=== PATIENT | female | born 1930 | race Caucasian/White ===

== ENCOUNTER 2018-06-25 15:11 | Inpatient (IN) | payer OTHER ==
[~2018-06-25] VITALS: Ht 162.6 cm; Wt 73.9 kg
[2018-06-25] MEDS ORDERED: ACIDOPHILUS1 EACH PO (15:39)
[2018-06-25] MEDS ORDERED: BACTRIM DS TAB1 EACH PO (15:39)
[2018-06-25] MEDS ORDERED: COUMADIN1 M1 PO (15:40)
[2018-06-25] MEDS ORDERED: SERTRALINE HCL25 MG PO (15:40)
[2018-06-25] MEDS ORDERED: CRESTOR5 M1 PO (15:41)
[2018-06-25] MEDS ORDERED: CARDIZEM CD120 M2 PO (15:41)
[2018-06-25] MEDS ORDERED: TOPROL XL200 M1 PO (15:42)
[2018-06-25] MEDS ORDERED: LASIX20 M1 PO (15:42)
[2018-06-25] MEDS ORDERED: CALCIUM 500 +1 EAC3 PO (15:43)
[2018-06-25] MEDS ORDERED: MIRALAX17 G1 PO (15:43)
[2018-06-25] MEDS ORDERED: VITAMIN B-121000 MC3 PO (15:44)
[2018-06-25] MEDS ORDERED: FOLIC ACID1 M1 PO (15:44)
[2018-06-25] MEDS ORDERED: SODIUM CHLORI1000 MG PO (15:45)
[2018-06-25] MEDS ORDERED: TRAVATAN Z5 ML OD (15:46)
[2018-06-25 16:00] LABS: ABSOLUTE BASOPHIL COUNT 0 /CUMM (0.0-0.2); ABSOLUTE EOSINOPHIL COUNT 0 /CUMM (0.0-0.7); ABSOLUTE GRANULOCYTE CT 6.2 /CUMM (1.4-6.5); ABSOLUTE LYMPH COUNT 2.7 /CUMM (1.2-3.4); ABSOLUTE MONOCYTE COUNT 0.5 /CUMM (0.10-0.60); BASOPHIL % 0.1 % (0.0-2.0); EOSINOPHIL % 0.3 % (0-5); HEMATOCRIT 22.6 % (37-47); MEAN CORPUSCULAR HGB 24.6 PG (27.0-31.0); MEAN CORPUSCULAR HGB CONC 31.5 G/DL (33.0-37.0); MEAN CORPUSCULAR VOLUME 78.2 FL (81.0-99.0); MEAN PLATELET VOLUME 8.6 FL (7.4-10.4); PLATELET COUNT 291 /CUMM (130-400); RBC DISTRIBUTION WIDTH 17.4 % (11.5-14.5); RED BLOOD CELL CT 2.88 /CUMM (4.20-5.40); WHITE BLOOD CELL COUNT 9.4 /CUMM (4.8-10.8)
--- NOTE | 2018-06-25 16:11 | ED GENERAL ADULT ---
See Addendum History of Present Illness General Chief Complaint: General Adult Stated Complaint: BIBA GI BLEED Source: patient, EMS Exam Limitations: dementia, poor historian Allergies Coded Allergies: Penicillins (UNKNOWN 06/25/18) erythromycin base (UNKNOWN 06/25/18) fluoxetine (From PROZAC) (UNKNOWN 06/25/18) Reconcile Medications Calcium Carbonate/Vitamin D3 (Calcium 500 + Vit D 200 Caplet) 500 MG-200 TABLET 1 TAB PO DAILY VITAMIN SUPPORT (Reported) Cyanocobalamin (Vitamin B-12) 1,000 MCG TABLET 1 TAB PO DAILY VITAMIN SUPPORT (Reported) Diltiazem HCl (Cardizem Cd) 120 MG CAP.ER.24H 1 CAP PO DAILY HEART (Reported) Folic Acid 1 MG TABLET 1 TAB PO DAILY VITAMIN SUPPORT (Reported) Furosemide (Lasix) 20 MG TABLET 1 TAB PO DAILY WATER RETENTION (Reported) Lactobacillus Acidophilus (Acidophilus) 1 EACH CAPSULE 1 CAP PO BID GI ( Reported) Metoprolol Succinate (Toprol XL) 200 MG TAB.ER.24H 1 TAB PO DAILY HEART ( Reported) Polyethylene Glycol 3350 (Miralax) 17 GRAM POWD.PACK 1 PAC PO DAILY GI ( Reported) dissolve in water Rosuvastatin Calcium (Crestor) 5 MG TABLET 1 TAB PO DAILY CHOLESTEROL ( Reported) Sertraline HCl 25 MG TABLET 1 TAB PO DAILY DEPRESSION (Reported) Sodium Chloride 1,000 MG TABLET.SONG 2 TAB PO DAILY SUPPLEMENT (Reported) Sulfamethoxazole/Trimethoprim (Bactrim Ds Tablet) 800 MG-160 MG TABLET 1 TAB PO BID ANTIBIOTIC, INFECTION (Reported) Travoprost (Travatan Z) 0.004 % DROPS 1 GTT OD QPM EYE (Reported) Warfarin Sodium (Coumadin) 1 MG TABLET 1 TAB PO 1700 BLOOD THINNER (Reported) Triage Note: PT BIBA FROM ECF WITH C/O NEW ONSET RECTAL BLEEDING AND AMS. EMS REPORTS ABNORMAL PT/INR, ABDORMAL RENAL FUNCTION FROM LABS DRAWN YESTERDAY. PT ON COUMADIN, STOPPED YESTERDAY 2/2 ELEVATED PT/INR. BUN 25.5, CR 2.8. PT ARRIVES LETHARGIC, COOL TO TOUCH, DUSKY EXTREMETIES, PALE. AWAKENS TO MOANING ALOUD R/T ABDOMINAL PAIN. HYPOTENSIVE EN ROUTE, BLOOD GLUCOSE 103. Triage Nurses Notes Reviewed? yes Onset: Abrupt Duration: hour(s): Timing: constant HPI: 88-year-old female with a history of an dementiam, NSTEMI, a-fib (on coumadin) and hypertension brought in by ambulance from an ECF with her mental status and rectal bleeding since this morning. Patient was recently on Coumadin which was stopped yesterday secondary to an elevated INR. Today the ECF noticed bright red blood per rectum in the patient's diaper. Patient has dementia at baseline, but has had an acute worsening in her mental status. On arrival to the emergency department she appears cool and cyanotic, will intermittently moan regarding abdominal pain. Patient response to vigorous stimuli, but is unable to provide any history at this time. (Sera Umanzor) Vital Signs & Intake/Output Vital Signs & Intake/Output Vital Signs Date Time Temp Pulse Resp B/P B/P Pulse O2 O2 Flow FiO2 Mean Ox Delivery Rate 06/25 1836 94.3 104 13 88/54 100 Nasal 2.0L Cannula 06/25 1645 96.3 98 26 1058/00 06/25 1610 96 Non 100% ReBreather 06/25 1520 96.3 110 24 96/49 92 Nasal 2.0L Cannula (Chris Osman) Past History Travel History Traveled to [place] past 21 day No Medical History Any Pertinent Medical History? see below for history Cardiovascular: hypertension, NSTEMI Surgical History Surgical History: non-contributory Family History Hx Contributory? No (Sera Umanzor) Review of Systems Review of Systems Constitutional: Reports: no symptoms. EENTM: Reports: no symptoms. Respiratory: Reports: no symptoms. Cardiovascular: Reports: no symptoms. GI: Reports: see HPI. Genitourinary: Reports: no symptoms. Musculoskeletal: Reports: no symptoms. Skin: Reports: no symptoms. Neurological/Psychological: Reports: see HPI. Hematologic/Endocrine: Reports: no symptoms. Immunologic/Allergic: Reports: no symptoms. All Other Systems: Reviewed and Negative (Sera Umanzor) Physical Exam Physical Exam General Appearance: lethargic, moderate distress Head: atraumatic, normal appearance Eyes: Bilateral: normal appearance. Neck: normal inspection Cardiovascular: irregular rhythm Gastrointestinal: soft, non-tender Rectal: heme positive stool, bright red blood is noted in the patient's diaper as well as digital rectal exam Back: normal inspection Extremities: normal inspection Neurologic/Psych: awake, alert, disoriented 3 Skin: intact, cyanosis, pallor Core Measures ACS in differential dx? No CVA/TIA Diagnosis: No Sepsis Present: No Sepsis Focused Exam Completed? No (Nan ENGLAND,Sera) Progress Differential Diagnoses I considered the following diagnoses in my evaluation of the patient: [Lower GI bleed versus brisk upper GI bleed versus anemia versus ACS] Initial ED EKG: AFIB, mild QRS widening (Nan ENGLAND,Sera) Plan of Care: Orders Procedure Date/time Status Nothing by Mouth 06/26 B Active Patient Data 06/25 2011 Active Admit to inpatient 06/25 2009 Active Code Status 06/25 2009 Active TROPONIN LEVEL 06/25 194 Active PROTHROMBIN TIME 06/25 194 Complete CBC WITHOUT DIFFERENTIAL 06/25 194 Complete BASIC METABOLIC PANEL 06/25 194 Active Hill, Insertion/Removal/Asses 06/25 175 Active CULTURE,URINE 06/25 175 Active BLOOD PRODUCT PICKUP 06/25 1739 Active EKG 06/25 1711 Active Intake & Output 06/25 1707 Active BLOOD PRODUCT PICKUP 06/25 1638 Active FingerStick- Glucose 06/25 1627 Active FRESH FROZEN PLASMA 06/25 1619 Active LEUKOCYTE POOR (PACKED CELLS) 06/25 1552 Active URINALYSIS 06/25 1521 Complete TROPONIN LEVEL 06/25 1521 Complete PARTIAL THROMBOPLASTIN TIME 06/25 1521 Complete PROTHROMBIN TIME 06/25 1521 Complete COMPREHENSIVE METABOLIC PANEL 06/25 1521 Complete CBC WITHOUT DIFFERENTIAL 06/25 1521 Complete EKG 06/25 1521 Active TYPE & SCREEN (NOT X-MATCH) 06/25 1521 Active Current Medications Sig/Osmany Start time Last Medication Dose Stop Time Status Admin Ceftriaxone Sodium 1,000 MG ONCE ONE 06/25 2100 UNVr (Rocephin) 06/25 210 Sodium Bicarbonate 150 MEQ ONCE ONE 06/25 2045 AC (Sodium Bicarbonate 06/254 8.4%) Dextrose/Water 1,000 ML (D5W 1000) Laboratory Tests 06/25/182044: Sodium Pending, Potassium Pending, Chloride Pending, Carbon Dioxide Pending, Anion Gap Pending, BUN Pending, Creatinine Pending, BUN/Creatinine Ratio Pending , Glucose Pending, Calcium Pending, Troponin I Pending, PT 31.2 H, INR 2.83 H, CBC w Diff NO MAN DIFF REQ, RBC 2.22 L, MCV 80.0 L, MCH 26.4 L, MCHC 33.0, RDW 17.3 H, MPV 7.9, Gran % 89.6 H, Lymphocytes % 4.8 L, Monocytes % 5.5, Eosinophils % 0.1, Basophils % 0, Absolute Granulocytes 11.6 H, Absolute Lymphocytes 0.6 L, Absolute Monocytes 0.7 H, Absolute Eosinophils 0, Absolute Basophils 0 06/25/181844: Urine Color YEL, Urine Clarity CLDY H, Urine pH 8.0, Ur Specific Tyler 1.015, Urine Protein 30 H, Urine Ketones NEG, Urine Nitrite NEG, Urine Bilirubin NEG, Urine Urobilinogen 0.2, Ur Leukocyte Esterase LARGE H, Ur Microscopic SEDIMENT EXAMINED, Urine WBC 25-50 H, Ur Epithelial Cells FEW, Urine Bacteria MANY H, Urine Hemoglobin SMALL H, Urine Glucose NEG 06/25/18 1550: Anion Gap 20 H, Estimated GFR 14 L, BUN/Creatinine Ratio 20.0, Glucose 139 H, Calcium 8.2 L, Total Bilirubin 0.3, AST 29, ALT 21, Alkaline Phosphatase 77, Troponin I 0.08, Total Protein 5.7 L, Albumin 2.7 L, Globulin 3.0, Albumin/ Globulin Ratio 0.9 L, PT > 112.0 *H, INR > 10.0 *H, APTT 40 H, CBC w Diff NO MAN DIFF REQ, RBC 2.88 L, MCV 78.2 L, MCH 24.6 L, MCHC 31.5 L, RDW 17.4 H, MPV 8.6, Gran % 66.0, Lymphocytes % 28.7, Monocytes % 4.9, Eosinophils % 0.3, Basophils % 0.1, Absolute Granulocytes 6.2, Absolute Lymphocytes 2.7, Absolute Monocytes 0.5, Absolute Eosinophils 0, Absolute Basophils 0 Microbiology 06/25 1845 URINE ROUT: Urine Culture - RECD EKG shows rate controlled A. fib with mild QRS widening, troponin 0.08 H&H is 7.12/17, given 2 units of packed RBCs INR elevated to 10, given 2 units FFP and vitamin K Discussed with gastroenterology who saw and evaluated the patient Labs were also notable for hyperkalemia at 6.4 and acute renal failure with creatinine 3.2 and GFR 14, was given 10 units of IV insulin and calcium gluconate Repeat labs pending UA was suspicious for UTI, urine culture sent, covered with ceftriaxone Patient had soft BPs on arrival with initial systolic BP in the 90s, improved to 105 systolic with a small fluid bolus, but blood pressure has slowly trended back down with systolic 88. Modesto Hennessy DO had a discussion with the family who stated that the patient is DNR/DNI, but gave permission for pressors. Patient is currently receiving bicarbonate with a liter of saline, will reassess pressures after, and consider pressors if no improvement. Discussed with EDMD and will admit to ICU. (Sera Umanzor) (Chris Osman) Differential Diagnoses I considered the following diagnoses in my evaluation of the patient: (Modesto Hennessy DO) Departure Departure Disposition: STILL A PATIENT Condition: Stable Clinical Impression Primary Impression: GI bleed Secondary Impressions: MARIYA (acute kidney injury), Anemia, Hyperkalemia Referrals: Marjorie JAMES,Maureen Pretty (PCP/Family) Departure Forms: Customer Survey General Discharge Information Admission Note Documentation of Exam: Documentation of any treatments & extenuating circumstances including Concerns Regarding Discharge (functional status, medication knowledge or non-compliance, living conditions, etc.) that warrant an admission rather than observation: (Sera Umanzor) Admission Note Spoke With: Leandra Farnsworth MD Documentation of Exam: Documentation of any treatments & extenuating circumstances including Concerns Regarding Discharge (functional status, medication knowledge or non-compliance, living conditions, etc.) that warrant an admission rather than observation: [The patient was seen and evaluated by me. She was hypotensive in hemorrhagic shock. He was aggressively given blood products. Oxygen therapy, IV fluids. Discussion with the family confirm DNR/DNR, she needs admission for ICU level care] PA/MORGUE LIBRARIAN Co-Sign Statement Statement: ED Attending supervision documentation- [X] I saw and evaluated the patient. I have also reviewed all the pertinent lab results and diagnostic results. I agree with the findings and the plan of care as documented in the PA's/MORGUE LIBRARIAN's documentation. [] I have reviewed the ED Record and agree with the PA's/MORGUE LIBRARIAN's documentation. [] Additions or exceptions (if any) to the PAs/MORGUE LIBRARIAN's note and plan are summarized below: [] (Gerhard VINCENT,Modesto Kinney) Procedures Central Line Central Line Lumen: triple Central Line Procedure: Yes: bentadine prep?, sterile drapes applied, sterile dressing applied. Central Line Position: femoral (R) Anesthesia: lidocaine 1% CC's of Anesthesia: 5 Complications: none Central Line Post Position: sutured, good blood return Progress: CENTRAL LINE PERFORMED BY SAMANTA INMAN (Chris Osman) Critical Care Note Critical Care Note Critical Care Time: non-applicable (Sera Umanzor)
[2018-06-25 16:12] LABS: PTT 40 SEC (25-37)
[2018-06-25 16:14] LABS: PT > 112.0 SEC (9.4-12.5)
--- NOTE | 2018-06-25 17:40 | Cons- Gastroenterology ---
"General Information and HPI Consulting Request Date of Consult: 06/25/18 Requested By: Sera [place] Reason for Consult: 1. Hematochezia 2. Coagulopathy 3. Chronic use of anticoagulants Source of Information: electronic medical record, emergency department Exam Limitations: unable to give history History of Present Illness: Patient is an 88-year-old female. She is unable to give any history whatsoever. [facility] after she was noted to have bright red blood per rectum as well as a coagulopathy. She is chronically on Coumadin for atrial fibrillation, which was stopped yesterday after she was noted to have an elevated PT/INR. No records were brought with her and she has not been seen at [facility] before. 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 Upon arrival in the ED her H/H was 7.1/22.6. On 06/21 her H/H was 8.5/26.4 and on 05/21 it was 10.7/33.2. Her BUN/Cr was 64/3.2 on arrival with a potassium of 6.4. her BUN/Cr on 06/21 was 28/1.1 and on 05/21 was 30/1.5. She has had no further hematochezia since arrival in the ED. Allergies/Medications Allergies: Coded Allergies: Penicillins (UNKNOWN 06/25/18) erythromycin base (UNKNOWN 06/25/18) fluoxetine (From PROZAC) (UNKNOWN 06/25/18) Home Med List: Calcium Carbonate/Vitamin D3 (Calcium 500 + Vit D 200 Caplet) 500 MG-200 TABLET 1 TAB PO DAILY VITAMIN SUPPORT (Reported) Cyanocobalamin (Vitamin B-12) 1,000 MCG TABLET 1 TAB PO DAILY VITAMIN SUPPORT (Reported) Diltiazem HCl (Cardizem Cd) 120 MG CAP.ER.24H 1 CAP PO DAILY HEART (Reported) Folic Acid 1 MG TABLET 1 TAB PO DAILY VITAMIN SUPPORT (Reported) Furosemide (Lasix) 20 MG TABLET 1 TAB PO DAILY WATER RETENTION (Reported) Metoprolol Succinate (Toprol XL) 200 MG TAB.ER.24H 1 TAB PO DAILY HEART ( Reported) Polyethylene Glycol 3350 (Miralax) 17 GRAM POWD.PACK 1 PAC PO DAILY GI ( Reported) dissolve in water Sertraline HCl 25 MG TABLET 1 TAB PO DAILY DEPRESSION (Reported) Sodium Chloride 1,000 MG TABLET.SONG 2 TAB PO DAILY SUPPLEMENT (Reported) Travoprost (Travatan Z) 0.004 % DROPS 1 GTT OD QPM EYE (Reported) Warfarin Sodium (Coumadin) 1 MG TABLET 1 TAB PO 1700 BLOOD THINNER (Reported) Current Medications: Current Medications Sig/Osmany Start time Last Medication Dose Route Stop Time Status Admin Calcium Gluconate 1 GM ONCE ONE 06/25 1630 DC 06/25 Sodium Chloride 100 ML IV 06/25 1729 1642 Calcium Gluconate 0 .STK-MED ONE 06/25 1629 DC IV Insulin Human Regular 10 UNITS ONCE ONE 06/25 1630 DC 06/25 IV 06/25 1631 1642 Phytonadione 10 MG ONCE ONE 06/25 1630 DC 06/25 SC 06/25 1631 1623 Sodium Chloride 500 ML BOLUS ONE 06/25 1530 DC 06/25 IV 06/25 1629 1608 Past History Travel History Traveled to [place] past 21 day No Surgical History Surgical History: unable to assess Review of Systems Review of Systems: Unable to obtain. Exam & Diagnostic Data Vital Signs and I&O Vital Signs Date Time Temp Pulse Resp B/P B/P Pulse O2 O2 Flow FiO2 Mean Ox Delivery Rate 06/25 1645 96.3 98 26 1058/00 06/25 1610 96 Non 100% ReBreather 06/25 1520 96.3 110 24 96/49 92 Nasal 2.0L Cannula Physical Exam General Appearance: lethargic, moderate distress Head: atraumatic Eyes: Bilateral: normal appearance. Ears, Nose, Throat: moist mucus membranes Neck: supple Respiratory: bibasilar crackles Cardiovascular: Normal S1 and D|S2. No rub, murmur or gallop. Gastrointestinal: normal bowel sounds, soft, non-tender, no organomegaly Rectal: deferred Extremities: pretibial edema Neurologic/Psych: disoriented x 3 Cranial Nerves: moves all extremities Skin: pallor Results Pertinent Lab Results: Laboratory Tests 06/25 1550 Chemistry Sodium (137 - 145 mmol/L) 140 Potassium (3.5 - 5.1 mmol/L) 6.4 *H Chloride (98 - 107 mmol/L) 108 H Carbon Dioxide (22 - 30 mmol/L) 12 L Anion Gap (5 - 16) 20 H BUN (7 - 17 mg/dL) 64 H Creatinine (0.5 - 1.0 mg/dL) 3.2 H Estimated GFR (>60 ml/min) 14 L BUN/Creatinine Ratio (7 - 25 %) 20.0 Glucose (65 - 99 mg/dL) 139 H Calcium (8.4 - 10.2 mg/dL) 8.2 L Total Bilirubin (0.2 - 1.3 mg/dL) 0.3 AST (14 - 36 U/L) 29 ALT (9 - 52 U/L) 21 Alkaline Phosphatase (<127 U/L) 77 Troponin I (< 0.11 ng/ml) 0.08 Total Protein (6.3 - 8.2 g/dL) 5.7 L Albumin (3.5 - 5.0 g/dL) 2.7 L Globulin (1.9 - 4.2 gm/dL) 3.0 Albumin/Globulin Ratio (1.1 - 2.2 %) 0.9 L Coagulation PT (9.4 - 12.5 SEC) > 112.0 *H INR (0.90 - 1.19) > 10.0 *H APTT (25 - 37 SEC) 40 H Hematology CBC w Diff NO MAN DIFF REQ WBC (4.8 - 10.8 /CUMM) 9.4 RBC (4.20 - 5.40 /CUMM) 2.88 L Hgb (12.0 - 16.0 G/DL) 7.1 *L Hct (37 - 47 %) 22.6 L MCV (81.0 - 99.0 FL) 78.2 L MCH (27.0 - 31.0 PG) 24.6 L MCHC (33.0 - 37.0 G/DL) 31.5 L RDW (11.5 - 14.5 %) 17.4 H Plt Count (130 - 400 /CUMM) 291 MPV (7.4 - 10.4 FL) 8.6 Gran % (42.2 - 75.2 %) 66.0 Lymphocytes % (20.5 - 51.1 %) 28.7 Monocytes % (1.7 - 9.3 %) 4.9 Eosinophils % (0 - 5 %) 0.3 Basophils % (0.0 - 2.0 %) 0.1 Absolute Granulocytes (1.4 - 6.5 /CUMM) 6.2 Absolute Lymphocytes (1.2 - 3.4 /CUMM) 2.7 Absolute Monocytes (0.10 - 0.60 /CUMM) 0.5 Absolute Eosinophils (0.0 - 0.7 /CUMM) 0 Absolute Basophils (0.0 - 0.2 /CUMM) 0 Assessment/Plan Assessment/Recommendations: ASSESSMENT: 1. Hematochezia 2. Coagulopathy 3. Acute Renal Failure 4. Acute on Chronic Anemia 5. Respiratory Failure RECOMMENDATIONS: 1. Give 2 units FFP as well as vitamin K now and check coags after infused. Correct PT/INR fairly aggressively given GI bleeding. 2. Start Protonix 40 mg IV BID 3. Serial H/H every 4 hours for 24 hours 4. Monitor for ongoing signs of GI blood loss 5. Call GI should there be any change in patient's clinical condition. 6. At this time patient appears to be too unstable for endoscopic procedures. Further, severe coagulopathy would preclude either EGD or colonoscopy. 7. Keep patient NPO after midnight for EGD in a.m. Will discuss with next of kin. Consult Acknowledgment - Thank you for your consult request."
--- NOTE | 2018-06-25 18:20 | RADIOLOGY REPORT ---
EXAMINATION: CHEST 1 VIEW CLINICAL INFORMATION: Altered mental status. COMPARISON: None. TECHNIQUE: An AP view of the chest is provided. FINDINGS: The cardiac silhouette is enlarged. Pacer leads overlie the right atrium and right ventricle. The mediastinal and hilar contours are unremarkable. There are neither pleural effusions nor pneumothoraces. There is retrocardiac opacification and obscuration of the left hemidiaphragm. Partially visualized is cervical spine fusion hardware. There is narrowing to the acromiohumeral distances bilaterally. The osseous structures are otherwise unremarkable. IMPRESSION: Cardiomegaly with retrocardiac opacification. This could correspond to atelectasis or infiltrate. Recommendation is for a followup chest series to be obtained following treatment and/or resolution of symptoms to assure resolution of this appearance.
--- NOTE | 2018-06-25 20:12 | History & Physical ---
Tonya JAMES,Deni 06/25/18 2011: General Information and HPI MD Statement: I have seen and personally examined MOSES WILL and documented this H&P. The patient is a 88 year old F who presented with a patient stated chief complaint of [BRBPR]. Source of Information: family, W10 Exam Limitations: unable to give history History of Present Illness: 88 yo F with PMH of hypertension, hyperlipidemia, diabetes, atrial fibrilliation s/p pacemaker, and ND was brought to the ED from [facility] for evaluation of BRBPR. History is limited and most of the history has been obtained from the son and from nursing blood bank supervisor at [facility]. The nurse states that the patient was recently being treated for a UTI. For that purpose she had some blood work done and was found to have an elevated INR. Her Coumadin was thus put on hold. The only complaint the patient had recently was of pain in her left leg. She had a duplex scan (as she has a previous history of DVT) which was unremarkable. This morning the patient was found by the nurses in a pool of blood, at which time they called 911. The son states that for the past couple of months, the patient has had a significant deterioration in her mental status and is often confused at baseline. She does not carry a formal diagnosis of dementia. She is mostly bed or wheelchair bound. Allergies/Medications Allergies: Coded Allergies: Penicillins (UNKNOWN 06/25/18) erythromycin base (UNKNOWN 06/25/18) fluoxetine (From PROZAC) (UNKNOWN 06/25/18) Home Med list Calcium Carbonate/Vitamin D3 (Calcium 500 + Vit D 200 Caplet) 500 MG-200 TABLET 1 TAB PO DAILY VITAMIN SUPPORT (Reported) Cyanocobalamin (Vitamin B-12) 1,000 MCG TABLET 1 TAB PO DAILY VITAMIN SUPPORT (Reported) Diltiazem HCl (Cardizem Cd) 120 MG CAP.ER.24H 1 CAP PO DAILY HEART (Reported) Folic Acid 1 MG TABLET 1 TAB PO DAILY VITAMIN SUPPORT (Reported) Furosemide (Lasix) 20 MG TABLET 1 TAB PO DAILY WATER RETENTION (Reported) Metoprolol Succinate (Toprol XL) 200 MG TAB.ER.24H 1 TAB PO DAILY HEART ( Reported) Polyethylene Glycol 3350 (Miralax) 17 GRAM POWD.PACK 1 PAC PO DAILY GI ( Reported) dissolve in water Sertraline HCl 25 MG TABLET 1 TAB PO DAILY DEPRESSION (Reported) Sodium Chloride 1,000 MG TABLET.SONG 2 TAB PO DAILY SUPPLEMENT (Reported) Travoprost (Travatan Z) 0.004 % DROPS 1 GTT OD QPM EYE (Reported) Warfarin Sodium (Coumadin) 1 MG TABLET 1 TAB PO 1700 BLOOD THINNER (Reported) Past History Travel History Traveled to [place] past 21 day No Medical History Neurological: dementia Cardiovascular: AFIB, CAD, hypertension, hyperlipidemia, myocardial infarction Surgical History Surgical History: non-contributory Review of Systems Review of Systems Constitutional: Denies: chills, fever. Exam & Diagnostic Data Last 24 Hrs of Vital Signs/I&O Vital Signs Date Time Temp Pulse Resp B/P B/P Pulse O2 O2 Flow FiO2 Mean Ox Delivery Rate 06/25 183 94.3 104 13 88/54 100 Nasal 2.0L Cannula 06/25 1645 96.3 98 26 1058/00 06/25 1610 96 Non 100% ReBreather 06/25 1520 96.3 110 24 96/49 92 Nasal 2.0L Cannula Physical Exam General Appearance Alert, Cooperative, Mild Distress, awake, oriented x 2 Skin No Rashes, No Breakdown Skin Temp/Moisture Exam: Warm/Dry Sepsis Skin Exam (color): Normal for Ethnicity HEENT Atraumatic Cardiovascular Normal S1, Normal S2, No Murmurs, irregular Lungs Normal Air Movement, mild bibasilar crackles Abdomen Soft, No Tenderness Neurological Normal Speech Extremities b/l lower extremity edema up to knees Last 24 Hrs of Labs/[place]: Laboratory Tests 06/25/182044: Anion Gap 16, Estimated GFR 16 L, BUN/Creatinine Ratio 21.4, Glucose 109 H, Calcium 7.9 L, Troponin I 0.08, PT 31.2 H, INR 2.83 H, CBC w Diff NO MAN DIFF REQ, RBC 2.22 L, MCV 80.0 L, MCH 26.4 L, MCHC 33.0, RDW 17.3 H, MPV 7.9, Gran % 89.6 H, Lymphocytes % 4.8 L, Monocytes % 5.5, Eosinophils % 0.1, Basophils % 0, Absolute Granulocytes 11.6 H, Absolute Lymphocytes 0.6 L, Absolute Monocytes 0.7 H, Absolute Eosinophils 0, Absolute Basophils 0 06/25/18 1845: Urine Color YEL, Urine Clarity CLDY H, Urine pH 8.0, Ur Specific [place] 1.015, Urine Protein 30 H, Urine Ketones NEG, Urine Nitrite NEG, Urine Bilirubin NEG, Urine Urobilinogen 0.2, Ur Leukocyte Esterase LARGE H, Ur Microscopic SEDIMENT EXAMINED, Urine WBC 25-50 H, Ur Epithelial Cells FEW, Urine Bacteria MANY H, Urine Hemoglobin SMALL H, Urine Glucose NEG 06/25/18 1550: Anion Gap 20 H, Estimated GFR 14 L, BUN/Creatinine Ratio 20.0, Glucose 139 H, Calcium 8.2 L, Total Bilirubin 0.3, AST 29, ALT 21, Alkaline Phosphatase 77, Troponin I 0.08, Total Protein 5.7 L, Albumin 2.7 L, Globulin 3.0, Albumin/ Globulin Ratio 0.9 L, PT > 112.0 *H, INR > 10.0 *H, APTT 40 H, CBC w Diff NO MAN DIFF REQ, RBC 2.88 L, MCV 78.2 L, MCH 24.6 L, MCHC 31.5 L, RDW 17.4 H, MPV 8.6, Gran % 66.0, Lymphocytes % 28.7, Monocytes % 4.9, Eosinophils % 0.3, Basophils % 0.1, Absolute Granulocytes 6.2, Absolute Lymphocytes 2.7, Absolute Monocytes 0.5, Absolute Eosinophils 0, Absolute Basophils 0 Microbiology 06/25 1845 URINE ROUT: Urine Culture - RECD Assessment/Plan Assessment: 88 yo F with PMH of hypertension, hyperlipidemia, diabetes, atrial fibrilliation s/p pacemaker, and ND was brought to the ED from [facility] for evaluation of BRBPR. In the ER the patient was found to have significant low H&H along with supratherapeutic INR. She was transfused with 2 units FFP and a 1 unit pRBC. She had significant hyperkalemia with K of 6.3 for which she was administered IV Calcium Gluconate along with dextrose and regular insulin. A femoral line was placed in the right groin. She had no episodes of lower GI bleed since arrival to the ED Assessment: 1. Hemorrhagic Shock likely secondary to lower GI bleed (or upper GI with rapid transit) in the setting of supratherapeutic INR 2. MARIYA on CKD 3. Anion gap metabolic acidosis likely secondary to lactic acidosis 4. Hyperkalemia 5. Acute blood loss Anemia 6. UTI 7. Septic shock (Hypothermia, hypotension, tachycardia with urine as a source of infection). 8. ? Pneumonia - She has a retrocardiac opacity. Plan: * Admit patient to the ICU * Transfuse pRBC as needed to keep Hb > 8. * IV Protonix 40mg BID * His lactic acid is significantly elevated to 8.3. * Obtain VBG * Hydrate with Bicarb drip 150meq in D5W - 1L * Continue with IVF with NS @75ml/hr if hypotension persists. * Start Ceftriaxone 1g daily for UTI. She has moderate leukocyte esterase along with WBC in her urine. * Follow up urine culture. * Trend Renal function. * Keep Warfarin on hold. Confirm dosage with [facility] for discharge. * Diet: NPO for now. Spoke with Dr Silva who will plan on doing a EGD in am. * Per W10, the patient can be on regular and thin liquid. * DVT Prophylaxis: ALPS only * Code: DNR/DNI * I had an extensive discussion with the family regarding goals of care. At this point, the family wishes her code status to be DNR/DNI, however, they are agreeable to give her pressors if needed to maintain her blood pressure. They also support inteventions including colonoscopy/EGD if needed. They understand that the DNR/DNI is reversed for procedures. * Son Hiren can be reached on [phone] Daughter Sumi can be reached on [phone] As Ranked By This Provider Problem List: 1. GI bleed Core Measures/Misc (08/12) Acute Coronary Syndrome ACS Diagnosis: No Congestive Heart Failure Congestive Heart Failure Diagnosis No Cerebrovascular Accident CVA/TIA Diagnosis: No VTE (View Protocol) VTE Risk Factors Age>40 No Mechanical VTE Prophylaxis d/t N/A MechProphylax Ordered No VTE Pharm Prophylaxis d/t Medical Contraindication Sepsis (View protocol) Sepsis Present: No If YES complete Sepsis Event Note If YES complete Sepsis Event Note Leandra Farnsworth MD 06/26/18 0407: Core Measures/Misc (08/12) Sepsis (View protocol) If YES complete Sepsis Event Note If YES complete Sepsis Event Note Attending MD Review Statement Attending Statement Attending MD Statement: examined this patient, discuss w/resident/PA/WELL DRILL OPERATOR, agreed w/resident/PA/WELL DRILL OPERATOR Attending Assessment/Plan: This is an 88-year-old lady admitted to the hospital with hemorrhagic shock secondary to GI bleed in the setting of supratherapeutic INR. Her INR has been reversed with FFP, vitamin K and PRBCs. GI evaluated the patient and did not plan on doing an EGD or colonoscopy in the setting of hemodynamic instability. Patient has responded to the current treatment and her map is above 65. Currently she is a DNR/DNI. We will continue Protonix 40 mg IV twice daily. Incidentally she was found to have pyuria and was given a dosage of ceftriaxone. She has a femoral line in place which should be transitioned to an IJ if she continues to need this degree of access.
[2018-06-25 20:54] LABS: ABSOLUTE BASOPHIL COUNT 0 /CUMM (0.0-0.2); ABSOLUTE EOSINOPHIL COUNT 0 /CUMM (0.0-0.7); ABSOLUTE GRANULOCYTE CT 11.6 /CUMM (1.4-6.5); ABSOLUTE LYMPH COUNT 0.6 /CUMM (1.2-3.4); ABSOLUTE MONOCYTE COUNT 0.7 /CUMM (0.10-0.60); BASOPHIL % 0 % (0.0-2.0); EOSINOPHIL % 0.1 % (0-5); MEAN CORPUSCULAR HGB 26.4 PG (27.0-31.0); MEAN PLATELET VOLUME 7.9 FL (7.4-10.4); PLATELET COUNT 210 /CUMM (130-400); RBC DISTRIBUTION WIDTH 17.3 % (11.5-14.5); RED BLOOD CELL CT 2.22 /CUMM (4.20-5.40)
[2018-06-25 21:01] LABS: GRANULOCYTE % 89.6 % (42.2-75.2); HEMATOCRIT 17.8 % (37-47); PT 31.2 SEC (9.4-12.5)
--- NOTE | 2018-06-25 23:02 | Sepsis Event Note ---
Sepsis Event Note Severe Sepsis Severe Sepsis Present: Yes Septic Shock Septic Shock Present: Yes Sepsis Focused Exam Sepsis Cardiac Exam: Tachycardia Sepsis Resp Exam: CTA Sepsis Cap Refill Exam: <2 Sec Sepsis Peripheral Pulse Exam: Normal Sepsis Peripheral Pulse Location: Radial Sepsis Skin Exam (color): Normal for Ethnicity Skin Temp/Moisture Exam: Warm/Dry
[2018-06-26 01:36] LABS: ABSOLUTE BASOPHIL COUNT 0 /CUMM (0.0-0.2); ABSOLUTE EOSINOPHIL COUNT 0 /CUMM (0.0-0.7); ABSOLUTE GRANULOCYTE CT 10.4 /CUMM (1.4-6.5); ABSOLUTE LYMPH COUNT 1.1 /CUMM (1.2-3.4); ABSOLUTE MONOCYTE COUNT 0.6 /CUMM (0.10-0.60); BASOPHIL % 0.1 % (0.0-2.0); EOSINOPHIL % 0 % (0-5); HEMATOCRIT 20.4 % (37-47); MEAN CORPUSCULAR HGB 27.3 PG (27.0-31.0); MEAN CORPUSCULAR HGB CONC 33.3 G/DL (33.0-37.0); MEAN PLATELET VOLUME 8.8 FL (7.4-10.4); PLATELET COUNT 173 /CUMM (130-400); RBC DISTRIBUTION WIDTH 17.4 % (11.5-14.5); RED BLOOD CELL CT 2.48 /CUMM (4.20-5.40)
[2018-06-26 06:05] LABS: ABSOLUTE BASOPHIL COUNT 0 /CUMM (0.0-0.2); ABSOLUTE EOSINOPHIL COUNT 0 /CUMM (0.0-0.7); ABSOLUTE GRANULOCYTE CT 8.8 /CUMM (1.4-6.5); ABSOLUTE LYMPH COUNT 1.2 /CUMM (1.2-3.4); ABSOLUTE MONOCYTE COUNT 0.9 /CUMM (0.10-0.60); BASOPHIL % 0.1 % (0.0-2.0); EOSINOPHIL % 0 % (0-5); GRANULOCYTE % 80.4 % (42.2-75.2); HEMATOCRIT 25.3 % (37-47); MEAN CORPUSCULAR HGB 27.1 PG (27.0-31.0); MEAN CORPUSCULAR HGB CONC 32.8 G/DL (33.0-37.0); MEAN CORPUSCULAR VOLUME 82.7 FL (81.0-99.0); MEAN PLATELET VOLUME 8.7 FL (7.4-10.4); PLATELET COUNT 180 /CUMM (130-400); RBC DISTRIBUTION WIDTH 17.4 % (11.5-14.5); RED BLOOD CELL CT 3.06 /CUMM (4.20-5.40); WHITE BLOOD CELL COUNT 10.9 /CUMM (4.8-10.8)
--- NOTE | 2018-06-26 06:11 | Event Note ---
Event Note Event Note: S -Patients hemoglobin significantly dropped to 6.8/ from 7.1/22.6 on admission. Blood pressures continued to decrease despite fluids and blood products. Consent received from patients next of kin for repeat blood product over the phone. Dr. Silva notified of patients situation and agrees with further blood product. B -Patient is a 88 year old female with past medical history of hypertension, hyperlipidemia, diabetes, atrial fibrilliation s/p pacemaker, and MA was brought to the ED from [facility] for evaluation of BRBPR. In the ER the patient was found to have significant low H&H along with supratherapeutic INR. She was transfused with 2 units FFP and a 2 unit PRBC. Patient to receive additional unit after consent. AR Patients hemoglobin resolved status post 3 units PRBC. Hemoglobin at 8.3 this morning from 6.8. Repeat lactic acid 1.1 resolved from 8.3 on admission. * continue to monitor h/h and blood pressure * npo for possible endoscopic evaluation in morning by Dr. Silva * follow up repeat lactic acid
[2018-06-26 06:13] LABS: PT 30.1 SEC (9.4-12.5); PTT 31 SEC (25-37)
--- NOTE | 2018-06-26 07:24 | Cons- CRCU ---
MichiBoles 06/26/18 0724: General Information and HPI Consulting Request Date of Consult: 06/26/18 Requested By: Dr. Farnsworth Reason for Consult: HYPOVOLEMIC SHOCK HYPOTHERMIA Source of Information: family, old records, EMS, ED NOTE Exam Limitations: clinical condition, dementia History of Present Illness: 88 YO F with PMH of hypertension, hyperlipidemia, diabetes, atrial fibrilliation s/p pacemaker, and CO was brought to the ED from [facility] for evaluation of BRBPR. In ED history was obtained from some and nursing cold storage supervisor at [facility]. Patient has baseline confusion due to dementia. The son states that for the past couple of months, the patient has had a significant deterioration in her mental status. According to the nursing cold storage supervisor at [facility] patient was recently treated for UTI. Patient was found to have supratherapeutic INR after the blood work in [facility]. Yesterday morning patient was found to be in a pool of blood and nursing staff at [facility] called 911. Patient is seen this morning on bedside. Patient is responding to verbal command but she was sleepy and she was saying "let me sleep". Patient is on 2 L of oxygen and maintaining saturation 99%. She is in bear huger due to hypothermia. She is not able to onset of the question at this point. Allergies/Medications Allergies: Coded Allergies: Penicillins (UNKNOWN 06/25/18) erythromycin base (UNKNOWN 06/25/18) fluoxetine (From PROZAC) (UNKNOWN 06/25/18) Home Med List: Calcium Carbonate/Vitamin D3 (Calcium 500 + Vit D 200 Caplet) 500 MG-200 TABLET 1 TAB PO DAILY VITAMIN SUPPORT (Reported) Cyanocobalamin (Vitamin B-12) 1,000 MCG TABLET 1 TAB PO DAILY VITAMIN SUPPORT (Reported) Diltiazem HCl (Cardizem Cd) 120 MG CAP.ER.24H 1 CAP PO DAILY HEART (Reported) Folic Acid 1 MG TABLET 1 TAB PO DAILY VITAMIN SUPPORT (Reported) Furosemide (Lasix) 20 MG TABLET 1 TAB PO DAILY WATER RETENTION (Reported) Metoprolol Succinate (Toprol XL) 200 MG TAB.ER.24H 1 TAB PO DAILY HEART ( Reported) Polyethylene Glycol 3350 (Miralax) 17 GRAM POWD.PACK 1 PAC PO DAILY GI ( Reported) dissolve in water Sertraline HCl 25 MG TABLET 1 TAB PO DAILY DEPRESSION (Reported) Sodium Chloride 1,000 MG TABLET.SONG 2 TAB PO DAILY SUPPLEMENT (Reported) Travoprost (Travatan Z) 0.004 % DROPS 1 GTT OD QPM EYE (Reported) Warfarin Sodium (Coumadin) 1 MG TABLET 1 TAB PO 1700 BLOOD THINNER (Reported) Review of Systems Review of Systems Constitutional: Reports: see HPI. Past History Travel History Traveled to [place] past 21 day No Medical History Neurological: dementia EENT: glaucoma Cardiovascular: AFIB, CAD, hypertension, hyperlipidemia, myocardial infarction Musculoskeletal: chronic back pain, osteoarthritis Surgical History Surgical History: non-contributory Psychosocial History Where Do You Live[facility] Extended [facility] Smoking Status: Never Smoked ETOH Use: 6 Exam & Diagnostic Data Last 24 Hrs of Vital Signs/I&O Vital Signs Date Time Temp Pulse Resp B/P B/P Pulse O2 O2 Flow FiO2 Mean Ox Delivery Rate 06/26 0400 100 Nasal 2.0L Cannula 06/26 0000 99 Nasal 2.0L Cannula 06/25 2321 99 Nasal 2.0L Cannula 06/25 1836 94.3 104 13 88/54 100 Nasal 2.0L Cannula 06/25 1645 96.3 98 26 1058/00 06/25 1610 96 Non 100% ReBreather 06/25 1520 96.3 110 24 96/49 92 Nasal 2.0L Cannula Intake & Output 06/26 0800 06/26 0000 06/25 1600 Intake Total 2218 2800 Output Total 167 300 Balance 2050 2500 Intake, Blood 650 600 Product Intake, IV 1568 2200 Number 0 Bowel Movements Output, Urine 167 300 Patient 156 lb Weight Weight Bed scale Measurement Method Physical Exam General Appearance: well developed/nourished Head: atraumatic, normal appearance Neck: normal inspection, supple Respiratory: normal breath sounds Cardiovascular: regular rate/rhythm Gastrointestinal: normal bowel sounds, soft Extremities: b/l pedal edema Last 48 Hrs of Labs/[place]: Laboratory Tests 06/27/18 043: Gastrin Pending, Calcitonin Pending 06/27/18429: Anion Gap 7, Estimated GFR 22 L, BUN/Creatinine Ratio 24.8, PT 13.6 H, INR 1.24 H, CBC w Diff NO MAN DIFF REQ, RBC 3.19 L, MCV 84.7, MCH 28.1, MCHC 33.2, RDW 17.4 H, MPV 8.2, Gran % 81.9 H, Lymphocytes % 7.0 L, Monocytes % 9.8 H, Eosinophils % 0.9, Basophils % 0.4, Absolute Granulocytes 8.5 H, Absolute Lymphocytes 0.7 L, Absolute Monocytes 1.0 H, Absolute Eosinophils 0.1, Absolute Basophils 0 06/26/18 1848: CBC w Diff NO MAN DIFF REQ, RBC 3.36 L, MCV 84.9, MCH 27.7, MCHC 32.6 L, RDW 17.1 H, MPV 8.5, Gran % 77.1 H, Lymphocytes % 10.6 L, Monocytes % 12.2 H, Eosinophils % 0, Basophils % 0.1, Absolute Granulocytes 7.6 H, Absolute Lymphocytes 1.0 L, Absolute Monocytes 1.2 H, Absolute Eosinophils 0, Absolute Basophils 0 06/26/18 1456: RBC 2.75 L, MCV 82.4, MCH 27.6, MCHC 33.5, RDW 17.0 H, MPV 8.6, Gran % 79.8 H , Lymphocytes % 10.4 L, Monocytes % 9.7 H, Eosinophils % 0.1, Basophils % 0, Absolute Granulocytes 7.9 H, Absolute Lymphocytes 1.0 L, Absolute Monocytes 1.0 H, Absolute Eosinophils 0, Absolute Basophils 0 06/26/18 1450: PT 18.0 H, INR 1.64 H 06/26/18 1100: CBC w Diff NO MAN DIFF REQ, RBC 2.98 L, MCV 82.2, MCH 27.3, MCHC 33.2, RDW 17.2 H, MPV 9.1, Gran % 79.8 H, Lymphocytes % 11.0 L, Monocytes % 8.9, Eosinophils % 0.1, Basophils % 0.2, Absolute Granulocytes 8.4 H, Absolute Lymphocytes 1.2, Absolute Monocytes 0.9 H, Absolute Eosinophils 0, Absolute Basophils 0 06/26/18 0540: Lactic Acid 1.1 06/26/18 0540: Anion Gap 13, Estimated GFR 18 L, Glucose 78, Calcium 7.2 L, Phosphorus 4.7 H , Magnesium 1.8, Total Bilirubin 0.2, AST 22, ALT 31, Albumin 2.2 L, PT 30.1 H , INR 2.73 H, APTT 31, CBC w Diff NO MAN DIFF REQ, RBC 3.06 L, MCV 82.7, MCH 27.1, MCHC 32.8 L, RDW 17.4 H, MPV 8.7, Gran % 80.4 H, Lymphocytes % 11.0 L, Monocytes % 8.5, Eosinophils % 0, Basophils % 0.1, Absolute Granulocytes 8.8 H, Absolute Lymphocytes 1.2, Absolute Monocytes 0.9 H, Absolute Eosinophils 0, Absolute Basophils 0 06/26/18 0155: Lactic Acid 2.1 06/26/18 0100: CBC w Diff MAN DIFF ORDERED, RBC 2.48 L, MCV 82.0, MCH 27.3, MCHC 33.3, RDW 17.4 H, MPV 8.8, Gran % 86.0 H, Lymphocytes % 8.9 L, Monocytes % 5.0, Eosinophils % 0, Basophils % 0.1, Absolute Granulocytes 10.4 H, Segmented Neutrophils 95 H, Band Neutrophils 1, Absolute Lymphocytes 1.1 L, Lymphocytes 4 L, Absolute Monocytes 0.6, Absolute Eosinophils 0, Absolute Basophils 0, Nucleated RBCs 1 H, Platelet Estimate ADEQUATE, Polychromasia 1+, Poikilocytosis 1+, Ovalocytes 1+, Fld Total RBCs Counted 100 06/25/18 2310: Lactic Acid 2.4 H 06/25/18 2230: Bicarbonate Actual 18 L, Mixed VBG pH 7.41, Mixed VBG pCO2 28 L, Mixed VBG O2 Saturation 31 L, P-50 (Temp Corrected) Y, Carboxyhemoglobin 0.3 L, O2 Concentration % 2L, Temperature 95.0 L, O2 Delivery Method NC, Phlebotomy Draw Site CENTRAL LINE 06/25/182210: PT Cancelled, INR Cancelled 06/25/182044: Anion Gap 16, Estimated GFR 16 L, BUN/Creatinine Ratio 21.4, Glucose 109 H, Calcium 7.9 L, Troponin I 0.08, PT 31.2 H, INR 2.83 H, CBC w Diff NO MAN DIFF REQ, RBC 2.22 L, MCV 80.0 L, MCH 26.4 L, MCHC 33.0, RDW 17.3 H, MPV 7.9, Gran % 89.6 H, Lymphocytes % 4.8 L, Monocytes % 5.5, Eosinophils % 0.1, Basophils % 0, Absolute Granulocytes 11.6 H, Absolute Lymphocytes 0.6 L, Absolute Monocytes 0.7 H, Absolute Eosinophils 0, Absolute Basophils 0 06/25/181844: Urine Color YEL, Urine Clarity CLDY H, Urine pH 8.0, Ur Specific [place] 1.015, Urine Protein 30 H, Urine Ketones NEG, Urine Nitrite NEG, Urine Bilirubin NEG, Urine Urobilinogen 0.2, Ur Leukocyte Esterase LARGE H, Ur Microscopic SEDIMENT EXAMINED, Urine WBC 25-50 H, Ur Epithelial Cells FEW, Urine Bacteria MANY H, Urine Hemoglobin SMALL H, Urine Glucose NEG 06/25/18 1550: Anion Gap 20 H, Estimated GFR 14 L, BUN/Creatinine Ratio 20.0, Glucose 139 H, Lactic Acid 8.3 H, Calcium 8.2 L, Total Bilirubin 0.3, AST 29, ALT 21, Alkaline Phosphatase 77, Troponin I 0.08, Total Protein 5.7 L, Albumin 2.7 L, Globulin 3.0, Albumin/Globulin Ratio 0.9 L, TSH 4.490 H, Free T4 2.12 H, PT > 112.0 *H, INR > 10.0 *H, APTT 40 H, CBC w Diff NO MAN DIFF REQ, RBC 2.88 L, MCV 78.2 L, MCH 24.6 L, MCHC 31.5 L, RDW 17.4 H, MPV 8.6, Gran % 66.0, Lymphocytes % 28.7, Monocytes % 4.9, Eosinophils % 0.3, Basophils % 0.1, Absolute Granulocytes 6.2, Absolute Lymphocytes 2.7, Absolute Monocytes 0.5, Absolute Eosinophils 0, Absolute Basophils 0 Microbiology 06/25 1845 URINE ROUT: Legionella Antigen - COMP 06/25 1845 URINE ROUT: Streptococcus pneumoniae Antigen (M - COMP Assessment/Plan CRCU Impression/Plan: 88 YO F with PMH of hypertension, hyperlipidemia, diabetes, atrial fibrilliation s/p pacemaker, and CO was brought to the ED from [facility] for evaluation of BRBPR. In ED history was obtained from some and nursing cold storage supervisor at [facility]. A lower extremity Doppler was done which was negative for DVT. The patient is confused and not able to provide significant history. Patient was noted to have an INR greater than 10 and her hemoglobin was down to 5.9. Hypovolemic shock Due to GI bleeding: -Patient received 3 L of IV fluid, 3 units of blood transfusion and 2 FFPs. -Right now she is hemodynamic is stable. -Continue gentle IV fluid -Continue monitoring H&H. Right now patient's hemoglobin is 8.1, target is to keep >8 -Follow-up with GI for endoscopy/COLONOSCOPY. -Continue IV Protonix -Holding her antihypertensive medications and Lasix. Continue nothing by mouth. Septic shock secondary to urological region: -Possible septic shock as patient having hypothermia hypertension, tachycardia and urinalysis was positive. -Her urine culture came back positive with gram-negative rods. -Although the patient was recently treated for UTI and her previous urine culture on 06/19 was positive with Escherichia coli. -Her lactic acid is normal at this point -Continue IV ceftriaxone -Follow-up urine strep and Legionella antigen Supratherapeutic INR: -Her INR was 10 on presentation patient received 2 FFP's in ED -Today her INR was 2.73 and will give her 1 more FFP and we will check INR again -A patient's INR comes down to less than 2 we will notify to GI and they will do endoscopy/colonoscopy. 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 -Follow-up input and output -Avoid nephrotoxic medications H/O A.fib: -Holding the anticoagulation considering her bleeding per rectum. -Follow up cardio recommendations for anticoagulation after the scope. Respiratory: -Patient is on 2 L of oxygen and maintaining saturation 97%. Keep supplemental oxygen on to keep oxygen saturation above 92%. DVT prophylaxis: Mechanical only CODE STATUS: DNR/intubate Problem List: 1. GI bleed Consult Acknowledgment - Thank you for your consult request. Alfonso Mendoza MD 06/26/18 1005: General Information and HPI Consulting Request Date of Consult: 06/26/18 Assessment/Plan CRCU Other Findings/Comments: I have personally seen and examined the patient and agree with the resident's assessment and plan as detailed above. The patient is an 88-year-old female with a past medical history significant for hypertension, hyperlipidemia, diabetes, atrial fibrillation status post pacemaker, and a history of an CO. The patient was transferred to the hospital after being found to have bright red blood per rectum. She is a resident at [facility]. She also was treated for a UTI there. The patient complained of pain in her left leg as well. A lower extremity Doppler was done which was negative for DVT. The patient is confused and not able to provide significant history. In the ED, the patient was noted to have an INR greater than 10 per her hemoglobin was down to 5.9. She had acute kidney injury. The patient was further evaluated and found to have hemorrhagic shock secondary to lower GI bleed in the setting of a supratherapeutic INR. She also had acute blood loss anemia, anion gap metabolic acidosis, acute on chronic kidney injury, and possible pneumonia noting she has a retrocardiac opacity on chest x-ray. The patient has received several liters of fluids, 3 units of blood and fresh frozen plasma. She is awake and now hemodynamically stable. She has adequate urine output. Once again, the patient is not able to offer complaints. Impression: 1. Hemorrhagic Shock likely secondary to lower GI bleed in the setting of supratherapeutic INR. 2. MARIYA on CKD. 3. Anion gap metabolic acidosis secondary to lactic acidosis. 4. Hyperkalemia. 5. Acute blood loss Anemia. 6. UTI. 7. Septic shock (Hypothermia, hypotension, tachycardia with urine as a source of infection). 8. ? Pneumonia - She has a retrocardiac opacity. 9. Progressive dementia. Plan: * Await GI input and procedure this morning. * The patient will be n.p.o. with aspiration precautions. * Continue to monitor CBC every 8 hours, keep hemoglobin greater than 8. * ICU bundle every 8 hours with CBC. * Reverse INR with FFP as needed. Vitamin K was given. * IV Protonix 40 mg twice daily. * Follow lactic acid. * Continue gentle IV fluid hydration. * Continue Ceftriaxone for UTI. * Check urine for S pneumo and legionella. * DVT prophylaxis with Alps. * The patient is DNR/DNI. * Plan of care discussed with house staff in detail. * Continue to monitor in the critical care unit. Consult Acknowledgment - Thank you for your consult request.
[2018-06-26 11:47] LABS: ABSOLUTE BASOPHIL COUNT 0 /CUMM (0.0-0.2); ABSOLUTE EOSINOPHIL COUNT 0 /CUMM (0.0-0.7); ABSOLUTE GRANULOCYTE CT 8.4 /CUMM (1.4-6.5); ABSOLUTE LYMPH COUNT 1.2 /CUMM (1.2-3.4); ABSOLUTE MONOCYTE COUNT 0.9 /CUMM (0.10-0.60); BASOPHIL % 0.2 % (0.0-2.0); EOSINOPHIL % 0.1 % (0-5); GRANULOCYTE % 79.8 % (42.2-75.2); HEMATOCRIT 24.5 % (37-47); MEAN CORPUSCULAR HGB 27.3 PG (27.0-31.0); MEAN CORPUSCULAR HGB CONC 33.2 G/DL (33.0-37.0); MEAN CORPUSCULAR VOLUME 82.2 FL (81.0-99.0); MEAN PLATELET VOLUME 9.1 FL (7.4-10.4); PLATELET COUNT 189 /CUMM (130-400); RBC DISTRIBUTION WIDTH 17.2 % (11.5-14.5); RED BLOOD CELL CT 2.98 /CUMM (4.20-5.40); WHITE BLOOD CELL COUNT 10.5 /CUMM (4.8-10.8)
[2018-06-26 15:02] LABS: ABSOLUTE BASOPHIL COUNT 0 /CUMM (0.0-0.2); ABSOLUTE EOSINOPHIL COUNT 0 /CUMM (0.0-0.7); ABSOLUTE GRANULOCYTE CT 7.9 /CUMM (1.4-6.5); BASOPHIL % 0 % (0.0-2.0); EOSINOPHIL % 0.1 % (0-5); GRANULOCYTE % 79.8 % (42.2-75.2); HEMATOCRIT 22.7 % (37-47); MEAN CORPUSCULAR HGB 27.6 PG (27.0-31.0); MEAN CORPUSCULAR HGB CONC 33.5 G/DL (33.0-37.0); MEAN CORPUSCULAR VOLUME 82.4 FL (81.0-99.0); MEAN PLATELET VOLUME 8.6 FL (7.4-10.4); PLATELET COUNT 178 /CUMM (130-400); RED BLOOD CELL CT 2.75 /CUMM (4.20-5.40); WHITE BLOOD CELL COUNT 9.9 /CUMM (4.8-10.8)
--- NOTE | 2018-06-26 17:09 | Proc Note Endoscopy ---
Endoscopy Procedure Medical History: unchanged Mental Status: confused Heart/Lung Eval Prior to Sedation: within normal limits Candidate for Sedation? Yes Procedure Date: 06/26/18 Procedure Type: EGD w/biopsy Accounts Receivable Analyst: MD Silva Deborah E. ASA Classification: III Indications: 1. Melena 2. Acute blood loss anemia 3. Hypotension Instrument: diagnostic gastroscope Meds Received: MAC Patient's Tolerance: good Complications: none Extent Reached: second part of duodenum Procedure: Note: Informed consent was obtained prior to procedure. Risks and benefits of procedure were discussed with patient. Potential complications discussed included perforation, bleeding, abdominal pain, and adverse reaction to medications. It was explained that iany or all of these complications could result in the need for extended hospitalization, emergency surgery, transfusion of packed red blood cells (with the risk of HIV or hepatitis virus), intubation with mechanical ventilation, and possible need for antibiotics. It was further explained that an existing tumor polyp or mucosal abnormality might not be identified at the time of the procedure thus resulting in a missed opportunity for early diagnosis and treatment of a gastrointestinal malignancy or disease with possible interval development of a gastrointestinal cancer or other disease with possible worsening of clinical condition in the interval between endoscopies. It was also discussed that complications are not limited to those listed above. Possible alternatives to endoscopic treatment or evaluation were discussed. All questions were answered. Continuous EKG and blood pressure monitors were attached. Supplemental oxygen was provided with O2 Sat monitoring. Patient was placed in the left lateral decubitus position. A surgical timeout was performed. All persons in the room were identified. All concerns were expressed and answered. A bite block was placed in the mouth and sedation was administered by anesthesia and titrated to comfort prior to starting the procedure. The Olympus upper endoscope was advanced under direct vision to the level of the third portion of the duodenum. Esophagus: The esophagus had a normal mucosal vascular pattern throughout its entirety. The GE junction was identified and was normal. The Z line was located at 35 cm and was nondisplaced. On the gastric side of the GE junction there were marked inflammatory changes. Stomach: The stomach had diffuse erythema and edema with a petechial type pattern throughout the antrum and body. This had a somewhat polypoid appearance and when viewed with NBI appeared somewhat metaplastic. There was a prominent fold in the prepyloric region that was heaped up and had a masslike appearance. Multiple biopsies were obtained from this area. Retroflexed view of the cardiofundic region revealed a normal mucosal and vascular pattern. There were normal rugae and normal distensibility. The pylorus was patent and easily intubated. Biopsies were obtained from the antrum, angularis, gastric body and lesser curvature to rule out H. Pylori. Duodenum: The duodenum was fully examined from bulb down to the third portion. There w were multiple clean-based duodenal ulcers extending from the bulb down to the second portion. There was marked erythema, edema, and a petechial pattern throughout the duodenal bulb. With the endoscope in the forward-viewing position, it was slowly withdrawn and all areas were re-inspected and findings are as described previously. Patient tolerated the procedure well. EBL: 2 ml Specimens Removed: 1. antrum, angularis, gastric body and lesser curvature to rule out H. Pylori. 2. Gastric mucosal prominence/mass antrum/prepyloric region Findings: 1. Severe gastritis 2. Prominent fold with a masslike appearance in the antrum/Prepyloric region 3. Multiple duodenal no ulcers with no stigmata of bleeding 4. Marked duodenitis Impression: 1. Severe gastritis 2. Prominent fold with a masslike appearance in the antrum/Prepyloric region 3. Multiple duodenal no ulcers with no stigmata of bleeding 4. Marked duodenitis Given the severity of changes seen on upper endoscopy this is concerning for an acid secretory state. Recommendations: 1. I discussed with the ICU internal wholesaler, Ramana, that both that calcitonin and a gastrin should be ordered. 2. Patient will be maintained on Protonix 40 mg IV twice a day 3. I discussed with the patient's daughter Sumi Solano that I do not believe colonoscopy is warranted. We discussed that although patient may have a colonic malignancy which may be missed, it is unlikely that her mother would be able to take a prep or would agree to a prep. There is also discussed that placing an NG tube for administration of the prep poses risk factors including aspiration as well as perforation of the esophagus by an NG tube. We have also discussed that it is unlikely that if a colon cancer is found that she would undergo surgical resection. Her daughter understands this and does not want her mother to have a colonoscopy at this time. I discussed the findings of EGD with Ms. Solano and my concerns regarding possible malignancy as well. All questions were answered. 4. Serial H/H 5. Consider CT Scan abdomen and pelvis or MRI abdomen.
[2018-06-26 19:34] LABS: ABSOLUTE BASOPHIL COUNT 0 /CUMM (0.0-0.2); ABSOLUTE EOSINOPHIL COUNT 0 /CUMM (0.0-0.7); ABSOLUTE GRANULOCYTE CT 7.6 /CUMM (1.4-6.5); ABSOLUTE MONOCYTE COUNT 1.2 /CUMM (0.10-0.60); BASOPHIL % 0.1 % (0.0-2.0); EOSINOPHIL % 0 % (0-5); GRANULOCYTE % 77.1 % (42.2-75.2); MEAN CORPUSCULAR HGB 27.7 PG (27.0-31.0); MEAN CORPUSCULAR HGB CONC 32.6 G/DL (33.0-37.0); MEAN CORPUSCULAR VOLUME 84.9 FL (81.0-99.0); MEAN PLATELET VOLUME 8.5 FL (7.4-10.4); PLATELET COUNT 178 /CUMM (130-400); RBC DISTRIBUTION WIDTH 17.1 % (11.5-14.5); RED BLOOD CELL CT 3.36 /CUMM (4.20-5.40); WHITE BLOOD CELL COUNT 9.8 /CUMM (4.8-10.8)
[2018-06-26 19:36] LABS: HEMATOCRIT 28.5 % (37-47)
--- NOTE | 2018-06-26 23:14 | CT SCAN REPORT ---
EXAMINATION: CT ABDOMEN AND PELVIS WITHOUT CONTRAST CLINICAL INFORMATION: Multiple duodenal ulcers with a mass leading to bleed. COMPARISON: None TECHNIQUE: Multidetector volumetric imaging was performed from the superior aspect of the liver through the pubic symphysis. Sagittal and coronal reformatted images were obtained on the technologist's workstation. No oral or intravenous contrast given. DLP: 796.82 mGy-cm FINDINGS: There is artifact from the patient's arms at her side. LUNG BASES: Pacemaker lead seen in the right atrium and right ventricle. Heart size is enlarged. Moderate volume dependent bilateral pleural effusions. There is dependent atelectasis at both lung bases. LIVER, GALLBLADDER, AND BILIARY TREE: The liver is normal in size, shape, and attenuation. No focal hepatic lesion or biliary ductal dilatation is present. The gallbladder is distended. The gallbladder does lie adjacent to the duodenum in the distal stomach. There is a calcified gallstone in the gallbladder measuring 2.4 cm. There is additional low density material layering dependently in the gallbladder which could be sludge. There is a small amount of fluid around the gallbladder which is of nonspecific significance given patient's anasarca and a small amount of fluid in the cul-de-sac. The extrahepatic CBD measures 6 mm. PANCREAS: Unremarkable. SPLEEN: Unremarkable. ADRENAL GLANDS: Unremarkable. KIDNEYS AND URETERS: The kidneys are normal in size, shape, and attenuation. No hydronephrosis, hydroureter, or calculi seen. No perinephric stranding. A 1.5 cm cortical cyst at the midpole of the right kidney. BLADDER: Hill catheter within the bladder. The bladder is empty. GASTROINTESTINAL TRACT: Other than the gallbladder, there is no mass impressing upon the duodenum and the stomach in the right upper quadrant. There is no gas in the lumen of the gallbladder and therefore, there is no evidence of a fistula between the gallbladder and the bowel. There is no acute change of the bowel. No bowel obstruction. No bowel wall thickening or edema. Scattered stool in the colon. The appendix is not identified. The small bowel loops are unremarkable. ABDOMINAL WALL: There is anasarca present No significant ventral wall hernia. LYMPH NODES: Normal. VASCULAR: There is atherosclerotic vascular calcifications of the aorta and iliac arteries. 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 There is a right inguinal venous catheter with the catheter tip in the right main common iliac vein. PELVIC VISCERA: The uterus is anteverted. There is coarse calcifications within the uterus. There is no adnexal abnormality. OSSEOUS STRUCTURES: Multilevel degenerative spondylosis of the spine, disc height narrowing, endplate sclerosis and facet joint arthrosis. Grade 1 anterolisthesis of L4 on L5 due to the facet joint disease. There is bilateral degenerative change of the hips with joint space narrowing and spurring of the acetabulum femoral heads. The arthropathy is greater on the right than the left hip. IMPRESSION: 1. Moderate bilateral pleural effusions with dependent atelectasis at the lung bases. 2. 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 Heart size is enlarged. 3. Cholelithiasis. Soft tissue density also in the lumen of the gallbladder could be sludge. The gallbladder is distended. The fundus of the gallbladder does lie adjacent to the stomach and duodenum. A right upper quadrant ultrasound would be helpful for further evaluation. 4. Suprapubic catheter present. 5. Calcified fibroids in the uterus. 6. Right inguinal venous catheter. 7. Atherosclerotic vascular calcifications. 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
[2018-06-27 00:24] VITALS: BP 122/60
[2018-06-27 05:18] LABS: ABSOLUTE BASOPHIL COUNT 0 /CUMM (0.0-0.2); ABSOLUTE EOSINOPHIL COUNT 0.1 /CUMM (0.0-0.7); ABSOLUTE GRANULOCYTE CT 8.5 /CUMM (1.4-6.5); ABSOLUTE LYMPH COUNT 0.7 /CUMM (1.2-3.4); BASOPHIL % 0.4 % (0.0-2.0); EOSINOPHIL % 0.9 % (0-5); GRANULOCYTE % 81.9 % (42.2-75.2); MEAN CORPUSCULAR HGB 28.1 PG (27.0-31.0); MEAN CORPUSCULAR HGB CONC 33.2 G/DL (33.0-37.0); MEAN CORPUSCULAR VOLUME 84.7 FL (81.0-99.0); MEAN PLATELET VOLUME 8.2 FL (7.4-10.4); PLATELET COUNT 149 /CUMM (130-400); PT 13.6 SEC (9.4-12.5); RBC DISTRIBUTION WIDTH 17.4 % (11.5-14.5); RED BLOOD CELL CT 3.19 /CUMM (4.20-5.40); WHITE BLOOD CELL COUNT 10.4 /CUMM (4.8-10.8)
--- NOTE | 2018-06-27 07:13 | PN- Resident CRCU ---
Subjective HPI/CRCU Issues: Hypovolemic shock Due to GI bleeding (Resolved) Septic shock secondary to urological region (Resolved) Supratherapeutic INR (improved) Acute on chronic kidney injury (improving) H/O A.fib Multiple Duodenal Ulcers with no stigmata of bleeding. Diffuse Duodenitis 24 Hour Events: No overnight events. Patient remained afebrile overnight. Seen and examined this morning. She still confused and lying in bed comfortably. Patient has baseline dementia according to her daughter. Patient has right inguinal peripheral central line. We will try to establish the perifrontal line access and then we will take out peripheral central line. Patient will be downgraded to telemetry. Objective Vital Signs & I&O Last 8 Hrs of Vitals and I&O: temp 98.2, pulse 93, r/r 20, bp 152/98, o2 sat 94 Exam General Appearance: well developed/nourished, no apparent distress, alert, awake Head: atraumatic, normal appearance Respiratory: normal breath sounds, chest non-tender Cardiovascular: regular rate/rhythm Gastrointestinal: normal bowel sounds, soft, non-tender Extremities: normal inspection Cranial Nerves: normal hearing, normal speech, PERRL Skin: intact Skin Temp/Moisture Exam: Warm/Dry Sepsis Skin Exam (color): Normal for Ethnicity Current Medications: Current Medications Sig/Osmany Start time Last Medication Dose Route Stop Time Status Admin Acetaminophen 650 MG Q6P PRN 06/25 2115 AC PO Ceftriaxone Sodium 1,000 MG 2100 06/26 2100 DC 06/27 IV 06/27 2300 203 Chlorhexidine 1 GM .STK-MED ONE 06/27 734 DC Gluconate TOP 06/27 07 Cyanocobalamin 1,000 MCG DAILY 06/26 900 AC 06/27 PO 1440 Dextrose/Sodium 1,000 ML Q8H 06/26 1215 AC 06/27 Chloride IV 1345 Folic Acid 1 MG DAILY 06/26 900 AC 06/27 PO 1440 Furosemide 20 MG DAILY 06/26 900 DC 06/27 PO 0859 Lorazepam 0.5 MG ONCE ONE 06/27 1330 DC 06/27 IV 06/27 1331 1332 Metoprolol Succinate 200 MG DAILY 06/26 900 AC 06/27 PO 0900 Pantoprazole Sodium 40 MG BID 06/25 2209 AC 06/27 IV 203 Potassium Chloride 20 MEQ ONCE ONE 06/27 0730 DC 06/27 PO 06/27 0731 0859 Impression/Plan Impression/Problem List Impression: 88 YO F with PMH of hypertension, hyperlipidemia, diabetes, atrial fibrilliation s/p pacemaker, and TN was brought to the ED from [facility] for evaluation of BRBPR. In ED history was obtained from some and nursing aquacultural worker supervisor at [facility]. Patient has baseline confusion due to dementia. The son states that for the past couple of months, the patient has had a significant deterioration in her mental status. According to the nursing aquacultural worker supervisor at [facility] patient was recently treated for UTI. Patient was found to have supratherapeutic INR after the blood work in [facility]. Yesterday morning patient was found to be in a pool of blood and nursing staff at [facility] called 911. Hypovolemic shock due to acute GI bleed:(resolved) -Patient received 3 L of IV fluid, 3 units of blood transfusion and 2 FFPs. -Right now she is hemodynamic is stable. -Continue gentle IV fluid -Continue monitoring H&H. Right now patient's hemoglobin is 8.1, target is to keep >8 -Endoscopy was done yesterday that showed multiple duodenal ulcer, gastritis and duodenitis. There was suspicion of thickening of mucosa in pyloric region that' s why CT scan abdomen pelvis were done to rule out any malignancy. -We will follow calcitonin and gastrin levels to find the etiology of multiple duodenal ulcers. Follow up with pathology report of her biopsy. -GI wanted to do colonoscopy but the family refused. -Continue IV Protonix -Holding her antihypertensive medications and Lasix. -We will advance the diet as tolerated. Septic shock secondary to urological region:(resolved) -Possible septic shock as patient having hypothermia hypertension, tachycardia and urinalysis was positive. -Her urine culture came back positive with gram-negative rods. -We will follow the blood cultures. -Although the patient was recently treated for UTI and her previous urine culture on 06/19 was positive with Escherichia coli. -Continue IV ceftriaxone -Urine strep and Legionella antigen are negative. Supratherapeutic INR: -Her INR was 10 on presentation patient received 2 FFP's in ED -INR today is 1.24 -Holding her Coumadin -Cardiology recommended no adequate Alvarado at this point considering risk of bleeding and patient is in sinus rhythm at this point. -We will follow cardiology recommendations if there is any change in future and treatment plan. 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 -Follow-up input and output -Avoid nephrotoxic medications -Holding lasix H/O A.fib: -Holding the anticoagulation considering her bleeding per rectum. -Cardiology recommended no adequate Alvarado at this point considering risk of bleeding and patient is in sinus rhythm at this point. Respiratory: -Patient is on 2 L of oxygen and maintaining saturation 97%. Keep supplemental oxygen on to keep oxygen saturation above 92%. DVT prophylaxis: Mechanical only CODE STATUS: DNR/intubate Problem List: 1. GI bleed 2. Hyperkalemia 3. Hypovolemic shock 4. [id number] kidney injury Pain Ratin Pain Location: none Tomorrow's Labs & Rationales: cbc/icu bundle Plan DVT/Prophylaxis: mechanical
[2018-06-27 08:00] VITALS: BP 120/60
--- NOTE | 2018-06-27 09:07 | Cons- Cardiology ---
General Information and HPI Consulting Request Date of Consult: 06/27/18 Requested By: Alfonso Mendoza MD History of Present Illness: Ms. Ureña is an 88 year old female with history of paroxysmal atrial fibrillation on Coumadin. She also carries a history of hypertension, dyslipidemia, diabetes and coronary artery disease s/p MN and permanent pacemaker placement. This patient was sent to [facility] with evidence of a GI bleed. Her INR was elevated at that time. The patient was not found to have active bleeding on endoscopy but has gastritis and a masslike lesion. She was hypotensive upon admission. At this time the patient does not offer any complaints. She does have a previous history of DVT but not recently. The son states that for the past couple of months, the patient has had a significant deterioration in her mental status and is often confused at baseline. She does not carry a formal diagnosis of dementia. She is mostly bed or wheelchair bound. Allergies/Medications Allergies: Coded Allergies: Penicillins (UNKNOWN 06/25/18) erythromycin base (UNKNOWN 06/25/18) fluoxetine (From PROZAC) (UNKNOWN 06/25/18) Home Med List: Calcium Carbonate/Vitamin D3 (Calcium 500 + Vit D 200 Caplet) 500 MG-200 TABLET 1 TAB PO DAILY VITAMIN SUPPORT (Reported) Cyanocobalamin (Vitamin B-12) 1,000 MCG TABLET 1 TAB PO DAILY VITAMIN SUPPORT (Reported) Diltiazem HCl (Cardizem Cd) 120 MG CAP.ER.24H 1 CAP PO DAILY HEART (Reported) Folic Acid 1 MG TABLET 1 TAB PO DAILY VITAMIN SUPPORT (Reported) Furosemide (Lasix) 20 MG TABLET 1 TAB PO DAILY WATER RETENTION (Reported) Metoprolol Succinate (Toprol XL) 200 MG TAB.ER.24H 1 TAB PO DAILY HEART ( Reported) Polyethylene Glycol 3350 (Miralax) 17 GRAM POWD.PACK 1 PAC PO DAILY GI ( Reported) dissolve in water Sertraline HCl 25 MG TABLET 1 TAB PO DAILY DEPRESSION (Reported) Sodium Chloride 1,000 MG TABLET.SONG 2 TAB PO DAILY SUPPLEMENT (Reported) Travoprost (Travatan Z) 0.004 % DROPS 1 GTT OD QPM EYE (Reported) Warfarin Sodium (Coumadin) 1 MG TABLET 1 TAB PO 1700 BLOOD THINNER (Reported) Review of Systems Review of Systems: A review of systems is not obtainable. Past History Travel History Traveled to [place] past 21 day No Medical History Neurological: dementia EENT: glaucoma Cardiovascular: AFIB, CAD, hypertension, hyperlipidemia, myocardial infarction Musculoskeletal: chronic back pain, osteoarthritis Surgical History Surgical History: unable to assess Psychosocial History Where [facility] You Live? [facility] Smoking Status: Never Smoked ETOH Use: 6 Exam & Diagnostic Data Vital Signs and I&O Vital Signs Date Time Temp Pulse Resp B/P B/P Pulse O2 O2 Flow FiO2 Mean Ox Delivery Rate 06/27 0900 85 15 136/60 06/27 0024 98.1 78 18 122/60 97 Room Air Room Air 06/27 0000 97 Room Air Room Air 06/26 2000 97 Nasal 2.0L Cannula 06/26 1856 Nasal 2.0L Cannula 06/26 1600 99 Nasal 2.0L Cannula 06/26 1200 97 Nasal 2.0L Cannula Intake & Output 06/27 1600 06/27 0800 06/27 0000 06/26 1600 06/26 0806/26 0000 Intake Total 1126 1378 1548 2218 2800 Output Total 260 250 180 167 300 Balance 866 1128 1368 2051 2500 Intake, Blood 350 436 650 600 Product Intake, IV 285 632 9881 1568 2200 Intake, Oral 180 80 60 Number 1 2 1 0 Bowel Movements Output, Urine 260 250 180 167 300 Patient 165 lb 156 lb Weight Weight Bed scale Bed scale Measurement Method Physical Exam: General: WD/WN female in NAD; awake and non-communicative. HEENT: NC/AT, PERRL, EOMI Neck: no JVD, no carotid bruit Heart: RRR Lungs: clear bilaterally Abdomen: soft, NT, +ve bowel sounds Extremities: no edema Assessment/Plan Assessment/Plan * This patient is currently in a sinus rhythm and has paroxysmal atrial fibrillation. In consideration of her severe bleed with hypotension I believe the risk of anticoagulation is greater than the benefit; especially in a patient that is already compromised in regard to her mental status. Her heart rate is appropriate as is her blood pressure at this time. * In consideration of this patient's renal insufficiency, I would hold her Lasix. She was likely in a pre-renal state secondary to her bleeding which I anticipate will improve over time. Consult Acknowledgment - Thank you for your consult request.
--- NOTE | 2018-06-27 09:55 | PN- CRCU ---
Subjective HPI/Critical Care Issues: Twenty four hour events reviewed. The patient is awake but confused. There is no report of bleeding overnight. The patient is unable to offer complaints. The patient continues to have a right inguinal TLC noting she has poor peripheral access. Her hemoglobin is currently stable. Objective Current Medications: Current Medications Sig/Osmany Start time Last Medication Dose Route Stop Time Status Admin Acetaminophen 650 MG Q6P PRN 06/25 2115 AC PO Ceftriaxone Sodium 1,000 MG 2100 06/26 2100 AC 06/26 IV 2134 Chlorhexidine 1 GM .STK-MED ONE 06/27 0734 DC Gluconate TOP 06/27 0735 Cyanocobalamin 1,000 MCG DAILY 06/26 900 AC 06/26 PO 0933 Dextrose/Sodium 1,000 ML Q8H 06/26 1215 AC 06/27 Chloride IV 0518 Folic Acid 1 MG DAILY 06/26 900 AC 06/26 PO 0932 Furosemide 20 MG DAILY 06/26 09 AC 06/27 PO 0859 Metoprolol Succinate 200 MG DAILY 06/26 900 AC 06/27 PO 0900 Pantoprazole Sodium 40 MG BID 06/25 2209 AC 06/27 IV 0900 Potassium Chloride 20 MEQ ONCE ONE 06/27 0730 DC 06/27 PO 06/27 0731 0859 Sodium Chloride 1,000 ML Q8H 06/26 0215 DC 06/26 IV 0932 Vital Signs & I&O Last 24 Hrs of Vitals and I&O: Vital Signs Date Time Temp Pulse Resp B/P B/P Pulse O2 O2 Flow FiO2 Mean Ox Delivery Rate 06/27 0900 85 15 136/60 06/27 0024 98.1 78 18 122/60 97 Room Air Room Air 06/27 0000 97 Room Air Room Air 06/26 2000 97 Nasal 2.0L Cannula 06/26 1856 Nasal 2.0L Cannula 06/26 1600 99 Nasal 2.0L Cannula 06/26 1200 97 Nasal 2.0L Cannula Intake & Output 06/27 1600 06/27 0806/27 0000 Intake Total 1126 1378 Output Total 260 250 Balance 866 1128 Intake, Blood 350 Product Intake, IV 946 948 Intake, Oral 180 80 Number 1 2 Bowel Movements Output, Urine 260 250 Patient 165 lb Weight Weight Bed scale Measurement Method Physical Exam General Appearance: comfortable, no distress Head: atraumatic, normal appearance Neck: normal inspection, supple Respiratory: normal breath sounds Cardiovascular: regular rate/rhythm Gastrointestinal: normal bowel sounds, soft Extremities: b/l pedal edema Results Last 24 Hrs of Lab Results: Laboratory Tests 06/27/18 043: Gastrin Pending, Calcitonin Pending 06/27/18 043: Anion Gap 7, Estimated GFR 22 L, BUN/Creatinine Ratio 24.8, Magnesium 1.8, PT 13.6 H, INR 1.24 H, CBC w Diff NO MAN DIFF REQ, RBC 3.19 L, MCV 84.7, MCH 28.1, MCHC 33.2, RDW 17.4 H, MPV 8.2, Gran % 81.9 H, Lymphocytes % 7.0 L, Monocytes % 9.8 H, Eosinophils % 0.9, Basophils % 0.4, Absolute Granulocytes 8.5 H, Absolute Lymphocytes 0.7 L, Absolute Monocytes 1.0 H, Absolute Eosinophils 0.1, Absolute Basophils 0 06/26/18 1848: CBC w Diff NO MAN DIFF REQ, RBC 3.36 L, MCV 84.9, MCH 27.7, MCHC 32.6 L, RDW 17.1 H, MPV 8.5, Gran % 77.1 H, Lymphocytes % 10.6 L, Monocytes % 12.2 H, Eosinophils % 0, Basophils % 0.1, Absolute Granulocytes 7.6 H, Absolute Lymphocytes 1.0 L, Absolute Monocytes 1.2 H, Absolute Eosinophils 0, Absolute Basophils 0 06/26/18 1456: RBC 2.75 L, MCV 82.4, MCH 27.6, MCHC 33.5, RDW 17.0 H, MPV 8.6, Gran % 79.8 H , Lymphocytes % 10.4 L, Monocytes % 9.7 H, Eosinophils % 0.1, Basophils % 0, Absolute Granulocytes 7.9 H, Absolute Lymphocytes 1.0 L, Absolute Monocytes 1.0 H, Absolute Eosinophils 0, Absolute Basophils 0 06/26/18 1450: PT 18.0 H, INR 1.64 H 06/26/18 1100: CBC w Diff NO MAN DIFF REQ, RBC 2.98 L, MCV 82.2, MCH 27.3, MCHC 33.2, RDW 17.2 H, MPV 9.1, Gran % 79.8 H, Lymphocytes % 11.0 L, Monocytes % 8.9, Eosinophils % 0.1, Basophils % 0.2, Absolute Granulocytes 8.4 H, Absolute Lymphocytes 1.2, Absolute Monocytes 0.9 H, Absolute Eosinophils 0, Absolute Basophils [address] Scan Findings: 1. Moderate bilateral pleural effusions with dependent atelectasis at the lung bases. 2. 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 Heart size is enlarged. 3. Cholelithiasis. Soft tissue density also in the lumen of the gallbladder could be sludge. The gallbladder is distended. The fundus of the gallbladder does lie adjacent to the stomach and duodenum. A right upper quadrant ultrasound would be helpful for further evaluation. 4. Suprapubic catheter present. 5. Calcified fibroids in the uterus. 6. Right inguinal venous catheter. 7. Atherosclerotic vascular calcifications. 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 Impression/Plan Impression/Plan Impression/Plan: 1. Acute blood loss anemia secondary to severe gastritis. 2. Prominent fold with a masslike appearance in the antrum/prepyloric region, rule out etiology. 3. Duodenal ulcers and duodenitis. 4. Acute kidney injury, secondary to hypotension and hypovolemic shock, improving. 5. Improving metabolic acidosis. 6. Urine culture positive for gram-negative rods. Previous urine culture positive for E. coli. 7. Moderate bilateral pleural effusions without respiratory compromise, the patient is currently on room air without any respiratory distress. 8. Supratherapeutic INR, improved. 9. History of atrial fibrillation, previously on anticoagulation. Recommendations: * Continue Protonix 40 mg twice daily. * Follow-up calcitonin gastrin levels. * Serial CBCs to be followed per GI. * Continue to monitor for bleeding. Call GI if any evidence of significant bleed. * Peripheral line placement to be established. * Will discontinue right groin triple-lumen as soon as possible. * Will need to discuss CT scan results with GI. * Follow-up cultures. * Continue ceftriaxone pending results. * DVT prophylaxis with Alps at all times. * Increased activity/out of bed to chair. * Downgrade out of ICU. * Continue all supportive care per
--- NOTE | 2018-06-27 11:09 | PN- Gastroenterology ---
Assessment/Plan GI Assessment/Recommendations: ASSESSMENT: 1. Multiple Duodenal Ulcers with no stigmata of bleeding. H/H is stable. 2. Diffuse Duodenitis 3. Diffuse Gastritis with a polypoid appearance 4. Dementia 5. Atrial Fibrillation -- off of anticoagulation 6. Acute Blood Loss Anemia -- Stable H/H. RECOMMENDATIONS: 1. Patient has at marked increased risk of bleeding given multiple significant duodenal ulcers as well as marked duodenitis and marked gastritis. 2. Gastrin and calcitonin have been ordered given the severity of endoscopic findings which suggest a hyper-secretory state. 3. Await pathology 4. Patient will need to be on BID PPI for her lifetime. 5. Would discuss with cardiology and with family need for anticoagulation. If okay with cardiology would prefer anticoagulant with drug with short half-life such as Lovenox. Would also prefer one6. with less potential for development of severe coagulopathy such as occurred with Coumadin. (Patient presented with INR of 10.) 6. Advance diet as tolerated. Subjective Subjective: Patient appears comfortable. Has had no further GI bleeding overnight. No melena, hematemesis. Is demented. Not able to provide any history or report regarding symptoms. Coumadin has been held. Objective Vital Signs and I&Os Vital Signs Date Time Temp Pulse Resp B/P B/P Pulse O2 O2 Flow FiO2 Mean Ox Delivery Rate 06/27 0900 85 15 136/60 06/27 0024 98.1 78 18 122/60 97 Room Air Room Air 06/27 0000 97 Room Air Room Air 06/26 2000 97 Nasal 2.0L Cannula 06/26 1856 Nasal 2.0L Cannula 06/26 1600 99 Nasal 2.0L Cannula 06/26 1200 97 Nasal 2.0L Cannula Intake & Output 06/27 1600 06/27 0400 06/26 1600 06/26 0400 06/25 1600 06/25 0400 Intake Total 1126 1378 3766 2800 Output Total 260 250 347 300 Balance 866 1128 3419 2500 Intake, Blood 350 1086 600 Product Intake, IV 020 225 6074 2200 Intake, Oral 180 80 60 Number 1 2 1 Bowel Movements Output, Urine 260 250 347 300 Patient 165 lb 156 lb Weight Weight Bed scale Bed scale Measurement Method Physical Exam General Appearance: awake, comfortable Respiratory: crackles Cardiovascular: regular rate/rhythm, Normal S1 and S2 Abdomen: normal bowel sounds, soft, non-tender, no organomegaly Neurologic/Psychiatric: disoriented x 3 Current Medications: Current Medications Sig/Osmany Start time Last Medication Dose Route Stop Time Status Admin Acetaminophen 650 MG Q6P PRN 06/25 2115 AC PO Ceftriaxone Sodium 1,000 MG 2100 06/26 2100 AC 06/26 IV 213 Chlorhexidine 1 GM .STK-MED ONE 06/27 734 DC Gluconate TOP 06/27 0735 Cyanocobalamin 1,000 MCG DAILY 06/26 900 AC 06/26 PO 0933 Dextrose/Sodium 1,000 ML Q8H 06/26 1215 AC 06/27 Chloride IV 0518 Folic Acid 1 MG DAILY 06/26 900 AC 06/26 PO 0932 Furosemide 20 MG DAILY 06/26 900 DC 06/27 PO 0859 Metoprolol Succinate 200 MG DAILY 06/26 900 AC 06/27 PO 09 Pantoprazole Sodium 40 MG BID 06/25 220 AC 06/27 IV 0900 Potassium Chloride 20 MEQ ONCE ONE 06/27 730 DC 06/27 PO 06/27 0731 0859 Sodium Chloride 1,000 ML Q8H 06/26 0215 DC 06/26 IV 0932 Results Pertinent Lab Results: Laboratory Tests 06/27 06/27 0430 0430 Chemistry Sodium (137 - 145 mmol/L) 140 Potassium (3.5 - 5.1 mmol/L) 3.5 Chloride (98 - 107 mmol/L) 114 H Carbon Dioxide (22 - 30 mmol/L) 20 L Anion Gap (5 - 16) 7 BUN (7 - 17 mg/dL) 52 H Creatinine (0.5 - 1.0 mg/dL) 2.1 H Estimated GFR (>60 ml/min) 22 L BUN/Creatinine Ratio (7 - 25 %) 24.8 Magnesium (1.6 - 2.3 mg/dL) 1.8 Gastrin Pending Calcitonin Pending Coagulation PT (9.4 - 12.5 SEC) 13.6 H INR (0.90 - 1.19) 1.24 H Hematology CBC w Diff NO MAN DIFF REQ WBC (4.8 - 10.8 /CUMM) 10.4 RBC (4.20 - 5.40 /CUMM) 3.19 L Hgb (12.0 - 16.0 G/DL) 9.0 L Hct (37 - 47 %) 27.0 L MCV (81.0 - 99.0 FL) 84.7 MCH (27.0 - 31.0 PG) 28.1 MCHC (33.0 - 37.0 G/DL) 33.2 RDW (11.5 - 14.5 %) 17.4 H Plt Count (130 - 400 /CUMM) 149 MPV (7.4 - 10.4 FL) 8.2 Gran % (42.2 - 75.2 %) 81.9 H Lymphocytes % (20.5 - 51.1 %) 7.0 L Monocytes % (1.7 - 9.3 %) 9.8 H Eosinophils % (0 - 5 %) 0.9 Basophils % (0.0 - 2.0 %) 0.4 Absolute Granulocytes (1.4 - 6.5 /CUMM) 8.5 H Absolute Lymphocytes (1.2 - 3.4 /CUMM) 0.7 L Absolute Monocytes (0.10 - 0.60 /CUMM) 1.0 H Absolute Eosinophils (0.0 - 0.7 /CUMM) 0.1 Absolute Basophils (0.0 - 0.2 /CUMM) 0 06/26 06/26 06/26 1848 1456 1450 Coagulation PT (9.4 - 12.5 SEC) 18.0 H INR (0.90 - 1.19) 1.64 H Hematology CBC w Diff NO MAN DIFF REQ WBC (4.8 - 10.8 /CUMM) 9.8 9.9 RBC (4.20 - 5.40 /CUMM) 3.36 L 2.75 L Hgb (12.0 - 16.0 G/DL) 9.3 L 7.6 L Hct (37 - 47 %) 28.5 L 22.7 L MCV (81.0 - 99.0 FL) 84.9 82.4 MCH (27.0 - 31.0 PG) 27.7 27.6 MCHC (33.0 - 37.0 G/DL) 32.6 L 33.5 RDW (11.5 - 14.5 %) 17.1 H 17.0 H Plt Count (130 - 400 /CUMM) 178 178 MPV (7.4 - 10.4 FL) 8.5 8.6 Gran % (42.2 - 75.2 %) 77.1 H 79.8 H Lymphocytes % (20.5 - 51.1 %) 10.6 L 10.4 L Monocytes % (1.7 - 9.3 %) 12.2 H 9.7 H Eosinophils % (0 - 5 %) 0 0.1 Basophils % (0.0 - 2.0 %) 0.1 0 Absolute Granulocytes (1.4 - 6.5 /CUMM) 7.6 H 7.9 H Absolute Lymphocytes (1.2 - 3.4 /CUMM) 1.0 L 1.0 L Absolute Monocytes (0.10 - 0.60 /CUMM) 1.2 H 1.0 H Absolute Eosinophils (0.0 - 0.7 /CUMM) 0 0 Absolute Basophils (0.0 - 0.2 /CUMM) 0 0 06/26 08 1100 0540 Chemistry Lactic Acid (0.7 - 2.1 mmol/L) 1.1 Hematology CBC w Diff NO MAN DIFF REQ WBC (4.8 - 10.8 /CUMM) 10.5 RBC (4.20 - 5.40 /CUMM) 2.98 L Hgb (12.0 - 16.0 G/DL) 8.1 L Hct (37 - 47 %) 24.5 L MCV (81.0 - 99.0 FL) 82.2 MCH (27.0 - 31.0 PG) 27.3 MCHC (33.0 - 37.0 G/DL) 33.2 RDW (11.5 - 14.5 %) 17.2 H Plt Count (130 - 400 /CUMM) 189 MPV (7.4 - 10.4 FL) 9.1 Gran % (42.2 - 75.2 %) 79.8 H Lymphocytes % (20.5 - 51.1 %) 11.0 L Monocytes % (1.7 - 9.3 %) 8.9 Eosinophils % (0 - 5 %) 0.1 Basophils % (0.0 - 2.0 %) 0.2 Absolute Granulocytes (1.4 - 6.5 /CUMM) 8.4 H Absolute Lymphocytes (1.2 - 3.4 /CUMM) 1.2 Absolute Monocytes (0.10 - 0.60 /CUMM) 0.9 H Absolute Eosinophils (0.0 - 0.7 /CUMM) 0 Absolute Basophils (0.0 - 0.2 /CUMM) 0 06/26 06/26 0540 0155 Chemistry Sodium (137 - 145 mmol/L) 141 Potassium (3.5 - 5.1 mmol/L) 4.1 Chloride (98 - 107 mmol/L) 108 H Carbon Dioxide (22 - 30 mmol/L) 19 L Anion Gap (5 - 16) 13 BUN (7 - 17 mg/dL) 58 H Creatinine (0.5 - 1.0 mg/dL) 2.5 H Estimated GFR (>60 ml/min) 18 L Glucose (65 - 99 mg/dL) 78 Lactic Acid (0.7 - 2.1 mmol/L) 2.1 Calcium (8.4 - 10.2 mg/dL) 7.2 L Phosphorus (2.5 - 4.5 mg/dL) 4.7 H Magnesium (1.6 - 2.3 mg/dL) 1.8 Total Bilirubin (0.2 - 1.3 mg/dL) 0.2 AST (14 - 36 U/L) 22 ALT (9 - 52 U/L) 31 Albumin (3.5 - 5.0 g/dL) 2.2 L Coagulation PT (9.4 - 12.5 SEC) 30.1 H INR (0.90 - 1.19) 2.73 H APTT (25 - 37 SEC) 31 Hematology CBC w Diff NO MAN DIFF REQ WBC (4.8 - 10.8 /CUMM) 10.9 H RBC (4.20 - 5.40 /CUMM) 3.06 L Hgb (12.0 - 16.0 G/DL) 8.3 L Hct (37 - 47 %) 25.3 L MCV (81.0 - 99.0 FL) 82.7 MCH (27.0 - 31.0 PG) 27.1 MCHC (33.0 - 37.0 G/DL) 32.8 L RDW (11.5 - 14.5 %) 17.4 H Plt Count (130 - 400 /CUMM) 180 MPV (7.4 - 10.4 FL) 8.7 Gran % (42.2 - 75.2 %) 80.4 H Lymphocytes % (20.5 - 51.1 %) 11.0 L Monocytes % (1.7 - 9.3 %) 8.5 Eosinophils % (0 - 5 %) 0 Basophils % (0.0 - 2.0 %) 0.1 Absolute Granulocytes (1.4 - 6.5 /CUMM) 8.8 H Absolute Lymphocytes (1.2 - 3.4 /CUMM) 1.2 Absolute Monocytes (0.10 - 0.60 /CUMM) 0.9 H Absolute Eosinophils (0.0 - 0.7 /CUMM) 0 Absolute Basophils (0.0 - 0.2 /CUMM) 0 06/26 06/25 0100 2310 Chemistry Lactic Acid (0.7 - 2.1 mmol/L) 2.4 H Hematology CBC w Diff MAN DIFF ORDERED WBC (4.8 - 10.8 /CUMM) 12.0 H RBC (4.20 - 5.40 /CUMM) 2.48 L Hgb (12.0 - 16.0 G/DL) 6.8 *L Hct (37 - 47 %) 20.4 L MCV (81.0 - 99.0 FL) 82.0 MCH (27.0 - 31.0 PG) 27.3 MCHC (33.0 - 37.0 G/DL) 33.3 RDW (11.5 - 14.5 %) 17.4 H Plt Count (130 - 400 /CUMM) 173 MPV (7.4 - 10.4 FL) 8.8 Gran % (42.2 - 75.2 %) 86.0 H Lymphocytes % (20.5 - 51.1 %) 8.9 L Monocytes % (1.7 - 9.3 %) 5.0 Eosinophils % (0 - 5 %) 0 Basophils % (0.0 - 2.0 %) 0.1 Absolute Granulocytes (1.4 - 6.5 /CUMM) 10.4 H Segmented Neutrophils (42.2 - 75.2 %) 95 H Band Neutrophils (0.0 - 5.0 %) 1 Absolute Lymphocytes (1.2 - 3.4 /CUMM) 1.1 L Lymphocytes (20.5 - 51.1 %) 4 L Absolute Monocytes (0.10 - 0.60 /CUMM) 0.6 Absolute Eosinophils (0.0 - 0.7 /CUMM) 0 Absolute Basophils (0.0 - 0.2 /CUMM) 0 Nucleated RBCs (0.0 - 0.0 /100WBC) 1 H Platelet Estimate (ADEQUATE) ADEQUATE Polychromasia 1+ Poikilocytosis 1+ Ovalocytes 1+ Other Body Source Fld Total RBCs Counted (%) 100 06/25 06/25 2230 2211 Blood Gas Bicarbonate Actual (22 - 26 MEQ/L) 18 L Mixed VBG pH (7.31 - 7.41 PH) 7.41 Mixed VBG pCO2 (41 - 51 TORR) 28 L Mixed VBG O2 Saturation (35 - 45 TORR) 31 L P-50 (Temp Corrected) Y Carboxyhemoglobin (1.5 - 5.0 %) 0.3 L O2 Concentration % 2L Temperature (97.0 - 100.0 FARH) 95.0 L O2 Delivery Method NC Coagulation PT Cancelled INR Cancelled Miscellaneous Phlebotomy Draw Site CENTRAL LINE 06/25 Chemistry Sodium (137 - 145 mmol/L) 139 Potassium (3.5 - 5.1 mmol/L) 4.6 Chloride (98 - 107 mmol/L) 107 Carbon Dioxide (22 - 30 mmol/L) 16 L Anion Gap (5 - 16) 16 BUN (7 - 17 mg/dL) 60 H Creatinine (0.5 - 1.0 mg/dL) 2.8 H Estimated GFR (>60 ml/min) 16 L BUN/Creatinine Ratio (7 - 25 %) 21.4 Glucose (65 - 99 mg/dL) 109 H Calcium (8.4 - 10.2 mg/dL) 7.9 L Troponin I (< 0.11 ng/ml) 0.08 Coagulation PT (9.4 - 12.5 SEC) 31.2 H INR (0.90 - 1.19) 2.83 H Hematology CBC w Diff NO MAN DIFF REQ WBC (4.8 - 10.8 /CUMM) 13.0 H RBC (4.20 - 5.40 /CUMM) 2.22 L Hgb (12.0 - 16.0 G/DL) 5.9 *L Hct (37 - 47 %) 17.8 *L MCV (81.0 - 99.0 FL) 80.0 L MCH (27.0 - 31.0 PG) 26.4 L MCHC (33.0 - 37.0 G/DL) 33.0 RDW (11.5 - 14.5 %) 17.3 H Plt Count (130 - 400 /CUMM) 210 MPV (7.4 - 10.4 FL) 7.9 Gran % (42.2 - 75.2 %) 89.6 H Lymphocytes % (20.5 - 51.1 %) 4.8 L Monocytes % (1.7 - 9.3 %) 5.5 Eosinophils % (0 - 5 %) 0.1 Basophils % (0.0 - 2.0 %) 0 Absolute Granulocytes (1.4 - 6.5 /CUMM) 11.6 H Absolute Lymphocytes (1.2 - 3.4 /CUMM) 0.6 L Absolute Monocytes (0.10 - 0.60 /CUMM) 0.7 H Absolute Eosinophils (0.0 - 0.7 /CUMM) 0 Absolute Basophils (0.0 - 0.2 /CUMM) 0 Urines Urine Color (YEL,AMB,STR) YEL Urine Clarity (CLEAR) CLDY H Urine pH (5.0 - 8.0) 8.0 Ur Specific [place] (1.001 - 1.035) 1.015 Urine Protein (NEG,<30 MG/DL) 30 H Urine Ketones (NEG) NEG Urine Nitrite (NEG) NEG Urine Bilirubin (NEG) NEG Urine Urobilinogen (0.1 - 1.0 EU/dl) 0.2 Ur Leukocyte Esterase (NEG) LARGE H Ur Microscopic SEDIMENT EXAMINED Urine WBC (0 - 2 /HPF) 25-50 H Ur Epithelial Cells (NONE,FEW) FEW Urine Bacteria (NEG/NONE) MANY H Urine Hemoglobin (NEG) SMALL H Urine Glucose (N MG/DL) NEG 06/25 1550 Chemistry Sodium (137 - 145 mmol/L) 140 Potassium (3.5 - 5.1 mmol/L) 6.4 *H Chloride (98 - 107 mmol/L) 108 H Carbon Dioxide (22 - 30 mmol/L) 12 L Anion Gap (5 - 16) 20 H BUN (7 - 17 mg/dL) 64 H Creatinine (0.5 - 1.0 mg/dL) 3.2 H Estimated GFR (>60 ml/min) 14 L BUN/Creatinine Ratio (7 - 25 %) 20.0 Glucose (65 - 99 mg/dL) 139 H Lactic Acid (0.7 - 2.1 mmol/L) 8.3 H Calcium (8.4 - 10.2 mg/dL) 8.2 L Total Bilirubin (0.2 - 1.3 mg/dL) 0.3 AST (14 - 36 U/L) 29 ALT (9 - 52 U/L) 21 Alkaline Phosphatase (<127 U/L) 77 Troponin I (< 0.11 ng/ml) 0.08 Total Protein (6.3 - 8.2 g/dL) 5.7 L Albumin (3.5 - 5.0 g/dL) 2.7 L Globulin (1.9 - 4.2 gm/dL) 3.0 Albumin/Globulin Ratio (1.1 - 2.2 %) 0.9 L TSH (0.270 - 4.200 uIU/mL) 4.490 H Free T4 (0.85 - 1.93 ng/dL) 2.12 H Coagulation PT (9.4 - 12.5 SEC) > 112.0 *H INR (0.90 - 1.19) > 10.0 *H APTT (25 - 37 SEC) 40 H Hematology CBC w Diff NO MAN DIFF REQ WBC (4.8 - 10.8 /CUMM) 9.4 RBC (4.20 - 5.40 /CUMM) 2.88 L Hgb (12.0 - 16.0 G/DL) 7.1 *L Hct (37 - 47 %) 22.6 L MCV (81.0 - 99.0 FL) 78.2 L MCH (27.0 - 31.0 PG) 24.6 L MCHC (33.0 - 37.0 G/DL) 31.5 L RDW (11.5 - 14.5 %) 17.4 H Plt Count (130 - 400 /CUMM) 291 MPV (7.4 - 10.4 FL) 8.6 Gran % (42.2 - 75.2 %) 66.0 Lymphocytes % (20.5 - 51.1 %) 28.7 Monocytes % (1.7 - 9.3 %) 4.9 Eosinophils % (0 - 5 %) 0.3 Basophils % (0.0 - 2.0 %) 0.1 Absolute Granulocytes (1.4 - 6.5 /CUMM) 6.2 Absolute Lymphocytes (1.2 - 3.4 /CUMM) 2.7 Absolute Monocytes (0.10 - 0.60 /CUMM) 0.5 Absolute Eosinophils (0.0 - 0.7 /CUMM) 0 Absolute Basophils (0.0 - 0.2 /CUMM) 0
--- NOTE | 2018-06-27 14:59 | RADIOLOGY REPORT ---
EXAMINATION: XR PORTABLE CHEST CLINICAL INFORMATION: PICC line placement COMPARISON: 06/25/2018 TECHNIQUE: Portable frontal view of the chest was obtained. FINDINGS: The right upper extremity PICC line is seen to the level of the SVC, however projects over the spine and the tip is not well seen. Increasing bibasilar consolidations with likely bilateral small pleural effusions. No evidence of pneumothorax bilaterally. Curly B lines are present. Increasing haziness of the right perihilar region is seen. The left perihilar region is obscured by the mediastinum. Possible minimal cardiomegaly. Left chest pacer with leads projecting over the right atrium and ventricle. Degenerative changes of the shoulders. Cervical spinal fusion hardware partially imaged. Degenerative changes of the spine. IMPRESSION: 1. The PICC line can be followed to the level of the SVC, however thereafter it becomes obscured by the vertebral bodies and degenerative osteophytes. Tip location cannot be confirmed. Repeat views with increased obliquity recommended. 2. Increasing bibasilar consolidations likely with small pleural effusions. Hazy opacities at the chelle and curly B lines. The relative quick onset is suggestive of heart failure, infection or inflammation or a combination of these. Correlate clinically.
[2018-06-27 16:00] VITALS: BP 120/70
--- NOTE | 2018-06-27 16:19 | RADIOLOGY REPORT ---
EXAMINATION: XR CHEST CLINICAL INFORMATION: Placement of PICC line. Oblique view of the chest requested to confirm catheter tip. Catheter tip is not seen in the AP projection performed earlier today. COMPARISON: Chest x-ray 06/27/2018, 2:27 PM TECHNIQUE: 2 oblique views of the chest were obtained. FINDINGS: The PICC line catheter tip is in good position at the caval atrial junction. There is bibasilar density due to pleural effusions and probable underlying infiltrate or consolidation. There is increased pulmonary vascularity. Pacemaker leads in right atrium and right ventricle. Orthopedic plate and screw at lower cervical spine. Multilevel degenerative spondylosis of the dorsal spine. IMPRESSION: PICC line catheter tip in good position at the caval atrial junction.
[2018-06-27 18:47] VITALS: BP 160/94
[2018-06-27 22:45] VITALS: BP 152/98
--- NOTE | 2018-06-28 05:43 | Transfer of Care Summary ---
Hospital Course Course Hospital Course: 88 YO F with PMH of hypertension, hyperlipidemia, diabetes, atrial fibrilliation s/p pacemaker, and TN was brought to the ED from [facility] for evaluation of BRBPR. In ED history was obtained from some and nursing dock supervisor at [facility]. Patient has baseline confusion due to dementia. The son states that for the past couple of months, the patient has had a significant deterioration in her mental status. According to the nursing dock supervisor at [facility]'s patient was recently treated for UTI. Patient was found to have supratherapeutic INR after the blood work in [facility]. Yesterday morning patient was found to be in a pool of blood and nursing staff at [facility] called 911. When patient was received in ED her blood pressure was 88/54, pulse 104 and temperature was 94.3. Patient was started on 2 L of oxygen. Fluid resuscitation was done for her hypovolemic shock due to acute GI bleeding. In ED periphral central line was placed in right groin and she was given three liters of normal saline to elevate her blood pressure and she was found to have INR 10. She received 1 prbc in ED and 2 FFP. Her Hb was 7.1->5.9-->6.8. Patient was admitted to ICU as she had hypovolemic shock due to GI blood loss and she was found to have UTI with positive urine culture with gram negative rods possibly causing septic shock. Patient had lactic acidosis on admission, lactic acid level was 8.3. Patient was given IV ceftriaxone. She was hypothermic and received bear huger in ICU and her temperature improved. She received total 4 PRBC and 3 FFPs total before she was down graded to tele. After fluid resuscitation, blood transfusions and fresh frozen plasma she became hemodynamically stable. After stabilization endoscopy was done in ICU and patient was found to have multiple duodenal ulcers without bleeding, gastritis and duodenitis. GI took the biopsies and recommended Protonix twice a day for lifetime use. Her peripheral central line was removed and PICC line was placed as she was hard stick. Now her Hb is 9.0 and INR is 1.24. Hypovolemic shock due to acute GI bleed:(resolved) -Patient received 3 L of IV fluid, 4 units of blood transfusion and 3 FFPs. -Right now she is hemodynamic is stable. -Continue gentle IV fluid -Continue monitoring H&H. Right now patient's hemoglobin is 8.1, target is to keep >8 -Endoscopy was done yesterday that showed multiple duodenal ulcer, gastritis and duodenitis. There was prominent fold with masslike apperance in antrum/ prepyloric region. -We will follow calcitonin and gastrin levels to find the etiology of multiple duodenal ulcers. Follow up with pathology report of her biopsy. -GI wanted to do colonoscopy to rule out colonic malignancy but the family refused. -Continue IV Protonix -Holding her antihypertensive medications and Lasix. -We will advance the diet as tolerated. Septic shock secondary to urological region:(resolved) -Possible septic shock as patient having hypothermia hypertension, tachycardia and urinalysis was positive. -Her urine culture came back positive with gram-negative rods. Growing Ecoli and proteus mirabilis in urine. -We will follow the blood cultures. -Although the patient was recently treated for UTI and her previous urine culture on 06/19 was positive with Escherichia coli. -Continue IV ceftriaxone -Urine strep and Legionella antigen are negative. Supratherapeutic INR: -Her INR was 10 on presentation patient received 2 FFP's in ED -INR today is 1.24 -Holding her Coumadin -Cardiology recommended no adequate Alvarado at this point considering risk of bleeding and patient is in sinus rhythm at this point. -We will follow cardiology recommendations if there is any change in future and treatment plan. 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 -Follow-up input and output -Avoid nephrotoxic medications -Holding lasix H/O A.fib: -Holding the anticoagulation considering her bleeding per rectum. -Cardiology recommended no adequate Alvarado at this point considering risk of bleeding and patient is in sinus rhythm at this point. Respiratory: -Patient is on 2 L of oxygen and maintaining saturation 97%. Keep supplemental oxygen on to keep oxygen saturation above 92%. DVT prophylaxis: Mechanical only CODE STATUS: DNR/intubate Assessment/Plan: Hypovolemic shock due to acute GI bleed:(resolved) -Patient received 3 L of IV fluid, 4 units of blood transfusion and 3 FFPs. -Right now she is hemodynamic is stable. -Continue gentle IV fluid -Continue monitoring H&H. Right now patient's hemoglobin is 8.1, target is to keep >8 -Endoscopy was done yesterday as her INR came back less than 2 after receiving an other unit of FFP. Endoscopy showed multiple duodenal ulcer, gastritis and duodenitis. There was suspicion of thickening of mucosa in pyloric region that' s why CT scan abdomen pelvis were done to rule out any malignancy. -We will follow calcitonin and gastrin levels to find the etiology of multiple duodenal ulcers. Follow up with pathology report of her biopsy. -GI wanted to do colonoscopy but the family refused. -Continue IV Protonix bid. -Holding her antihypertensive medications and Lasix. -We will advance the diet as tolerated. Septic shock secondary to urological region:(resolved) -Possible septic shock as patient having hypothermia hypertension, tachycardia and urinalysis was positive. -Her urine culture came back positive with gram-negative rods. She is growing E.coli and proteus mirabilis. -We will follow the blood cultures. -Although the patient was recently treated for UTI and her previous urine culture on 06/19 was positive with Escherichia coli. -Continue IV ceftriaxone -Urine strep and Legionella antigen are negative. Supratherapeutic INR: -Her INR was 10 on presentation patient received 2 FFP's in ED -INR today is 1.24 after receiving an other unit of FFP. -Holding her Coumadin -Cardiology recommended no anticoagulation at this point considering risk of bleeding and patient is in sinus rhythm at this point. -We will follow cardiology recommendations if there is any change in future and treatment plan. 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 -Follow-up input and output -Avoid nephrotoxic medications -Holding lasix H/O A.fib: -Holding the anticoagulation considering her bleeding per rectum. -Cardiology recommended no adequate Alvarado at this point considering risk of bleeding and patient is in sinus rhythm at this point. Respiratory: -Patient is on 2 L of oxygen and maintaining saturation 97%. Keep supplemental oxygen on to keep oxygen saturation above 92%. DVT prophylaxis: Mechanical only CODE STATUS: DNR/intubate
[2018-06-28 06:56] VITALS: BP 148/86
--- NOTE | 2018-06-28 07:38 | PN- Housestaff ---
Bacilio Martinez 06/28/18 0738: Subjective Follow-up For: Hemorragic shock Complaints: pt unable to provide hx Subjective: Patient is unable to provide history. When I went in, Patient was eating breakfast, and kep shouting that she wants to go away. Review of Systems Constitutional: Reports: see HPI. Objective Last 24 Hrs of Vital Signs/I&O Vital Signs Date Time Temp Pulse Resp B/P B/P Pulse O2 O2 Flow FiO2 Mean Ox Delivery Rate 06/28 2255 97.4 98 20 120/76 96 Nasal Cannula 06/28 1600 Nasal 2.0L Cannula 06/28 1404 98.3 99 22 126/80 91 Nasal Cannula 06/28 1004 114 146/90 06/28 0656 98.1 98 20 148/86 94 Room Air Intake & Output 06/29 0800 06/29 0000 06/28 1600 Intake Total 200 345 Output Total 150 300 Balance 50 45 Intake, IV 225 Intake, Oral 200 120 Number 1 Bowel Movements Output, Urine 150 300 Patient 163 lb 162 lb Weight Weight Bed scale Measurement Method Physical Exam General Appearance: Patient is disoriented and has anasarca Cardiovascular: Normal S1, Normal S2 Lungs: Clear to Auscultation Abdomen: Soft Extremities: edema in UE and LE Assessment/Plan Assessment: brought to the ED from [facility] for evaluation of BRBPR.Patient has baseline confusion due to dementiaThe son states that for the past couple of months, the patient has had a significant deterioration in her mental status. According to the nursing glazier supervisor at [facility] patient was recently treated for UTI. Patient was found to have supratherapeutic INR after the blood work in [facility]. Yesterday morning patient was found to be in a pool of blood and nursing staff at [facility] called 911.Patient was admitted to ICU as she had hypovolemic shock due to GI blood loss and she was found to have UTI with positive urine culture with gram negative rods possibly causing septic shock. Patient had lactic acidosis on admission, lactic acid level was 8.3. Patient was given IV ceftriaxone.She received total 4 PRBC and 3 FFPs.After stabilization endoscopy was done in ICU and patient was found to have multiple duodenal ulcers without bleeding, gastritis and duodenitis. GI took the biopsies and recommended Protonix twice a day for lifetime use. Her peripheral central line was removed and PICC line was placed as she was hard stick. 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 -Follow-up input and output -Avoid nephrotoxic medications -Holding lasix H/O A.fib: -Holding the anticoagulation considering her bleeding per rectum. -Cardiology recommended no adequate Alvarado at this point considering risk of bleeding and patient is in sinus rhythm at this point. Respiratory: -Patient is on oxygen and maintaining saturation 97%. Keep supplemental oxygen on to keep oxygen saturation above 92%. USe lasix only if OXygen desat. Supratherapeutic INR: -Her INR was 10 on presentation patient received 2 FFP's in ED -INR today was 1.11 after receiving an other unit of FFP. -Holding her Coumadin -Cardiology recommended no anticoagulation at this point considering risk of bleeding and patient is in sinus rhythm at this point. -We will follow cardiology recommendations if there is any change in future and treatment plan. Hypovolemic shock due to acute GI bleed:(resolved) -Patient received 3 L of IV fluid, 4 units of blood transfusion and 3 FFPs. -Right now she is hemodynamic is stable. -Continue gentle IV fluid -Continue monitoring H&H. Right now patient's hemoglobin is 8.1, target is to keep >8 -Endoscopy was done yesterday as her INR came back less than 2 after receiving an other unit of FFP. Endoscopy showed multiple duodenal ulcer, gastritis and duodenitis. There was suspicion of thickening of mucosa in pyloric region that' s why CT scan abdomen pelvis were done to rule out any malignancy. -We will follow calcitonin and gastrin levels to find the etiology of multiple duodenal ulcers. Follow up with pathology report of her biopsy. -GI wanted to do colonoscopy but the family refused. -Continue IV Protonix bid. -Holding her antihypertensive medications and Lasix. -We will advance the diet as tolerated. Septic shock secondary to urological region:(resolved) -Possible septic shock as patient having hypothermia hypertension, tachycardia and urinalysis was positive. -Her urine culture came back positive with gram-negative rods. She is growing E.coli and proteus mirabilis. -We will follow the blood cultures. -Although the patient was recently treated for UTI and her previous urine culture on 06/19 was positive with Escherichia coli. -Continue IV ceftriaxone -Urine strep and Legionella antigen are negative. DVT prophylaxis: Mechanical only CODE STATUS: DNR/intubate Problem List: 1. [id number] kidney injury 2. Hypovolemic shock 3. GI bleed Pain Ratin Pain Location: = Pain Goal: Remain pain free Pain Plan: - Tomorrow's Labs & Rationales: Bep CBC RBS Tamiko JAMES,Patricia 06/28/18 1046: Attending MD Review Statement Attending Statement Attending MD Statement: examined this patient, discuss w/resident/PA/METHODS STUDY ANALYST, agreed w/resident/PA/METHODS STUDY ANALYST, discussed with family, reviewed EMR data (avail), discussed with nursing, discussed with case mgmt, reviewed images Attending Assessment/Plan: 88-year-old female past medical history of A. fib on Coumadin prior to admission , hypertension, diabetes, hyperlipidemia brought in from an extended care facility. As per the family her mentation has been deteriorating prior to the admission and she came in in a shock state both hemorrhagic and hypovolemic as well as septic. She had a central line placed, she had multiple units of blood, IV fluids and FFP and had an endoscopy which showed multiple duodenal ulcers with duodenitis and thickened gastric folds. In addition she has been treated with antibiotics for sepsis of urological origin. She is now transferred to telemetry. She is off anticoagulation and the risks of anticoagulation outweigh the benefits at this point. Her central line has been taken out and she has a PICC line for access and we are giving her IV Protonix, IV antibiotics. Overall her condition appears very poor and that she is delirious, crying and agitated, very edematous with anasarca and cyanotic extremities. She is DNR and I spoke to the patient's son at length today. He understands that her overall prognosis is very poor. She barely ate anything even though she was fed today. We are going to see how she does over the weekend in terms of her mentation and p.o. intake. If she continues to have poor p.o. intake with delirium and crying than likely she will be evaluated for hospice on Sunday. I think that she would qualify for inpatient hospice at this time. For now we will continue the antibiotics, the PPI and other medical treatment.
[2018-06-28 07:56] LABS: ABSOLUTE BASOPHIL COUNT 0 /CUMM (0.0-0.2); ABSOLUTE EOSINOPHIL COUNT 0 /CUMM (0.0-0.7); BASOPHIL % 0 % (0.0-2.0); EOSINOPHIL % 0.1 % (0-5); RED BLOOD CELL CT 3.78 /CUMM (4.20-5.40)
[2018-06-28 08:17] LABS: PT 12.1 SEC (9.4-12.5)
[2018-06-28 08:34] LABS: ABSOLUTE GRANULOCYTE CT 13.4 /CUMM (1.4-6.5); ABSOLUTE LYMPH COUNT 0.8 /CUMM (1.2-3.4); ABSOLUTE MONOCYTE COUNT 0.5 /CUMM (0.10-0.60); GRANULOCYTE % 91.3 % (42.2-75.2); MEAN CORPUSCULAR HGB 27.9 PG (27.0-31.0); MEAN CORPUSCULAR HGB CONC 32.7 G/DL (33.0-37.0); MEAN CORPUSCULAR VOLUME 85.4 FL (81.0-99.0); MEAN PLATELET VOLUME 8.9 FL (7.4-10.4); PLATELET COUNT 207 /CUMM (130-400); RBC DISTRIBUTION WIDTH 18.1 % (11.5-14.5); WHITE BLOOD CELL COUNT 14.7 /CUMM (4.8-10.8)
[2018-06-28 08:41] LABS: HEMATOCRIT 32.3 % (37-47)
[2018-06-28 14:04] VITALS: BP 126/80
--- NOTE | 2018-06-28 15:50 | PN- Cardiology ---
Subjective Subjective: * Patient is non-communicative. * Decreased urine output with improved creatinine of 1.9 * sinus tachycardia * anasarca noted * Improved H/H. Increased WBC count. * bilateral pleural effusions at the bases bilaterally Objective Vital Signs and I&Os Vital Signs Date Time Temp Pulse Resp B/P B/P Pulse O2 O2 Flow FiO2 Mean Ox Delivery Rate 06/28 1404 98.3 99 22 126/80 91 Nasal Cannula 06/28 1004 114 146/90 06/28 0656 98.1 98 20 148/86 94 Room Air 06/28 0000 94 Room Air 06/27 2245 98.2 93 20 152/98 92 Room Air 06/27 1847 98.3 89 18 160/94 90 Room Air 06/27 1600 98.0 80 20 120/70 96 Room Air Intake & Output 06/28 1600 06/28 0800 06/28 0000 06/27 1600 06/27 0800 06/27 0000 Intake Total 345 163 392 0878 1126 1378 Output Total 300 325 350 400 260 250 Balance 45 -155 350 923 253 3550 Intake, Blood 350 Product Intake, IV 225 877 435 2649 946 948 Intake, Oral 120 0 200 120 180 80 Number 1 1 2 Bowel Movements Output, Urine 300 325 350 400 260 250 Patient 162 lb 162 lb 165 lb Weight Weight Bed scale Bed scale Measurement Method Physical Exam: General: WD/WN female in NAD; awake and non-communicative. HEENT: NC/AT, PERRL, EOMI Neck: no JVD, no carotid bruit Heart: RRR Lungs: decreased breath sounds at the bases bilaterally, no crackles Abdomen: soft, NT, +ve bowel sounds Extremities: 2+ edema in arms and legs bilaterally Assessment/Plan Assessment/Plan * This patient is currently in a sinus rhythm and has paroxysmal atrial fibrillation. In consideration of her severe bleed with hypotension I believe the risk of anticoagulation is greater than the benefit; especially in a patient that is already compromised in regard to her mental status. Her heart rate is appropriate as is her blood pressure at this time. * In consideration of this patient's renal insufficiency, I would hold her Lasix if possible. She was likely in a pre-renal state secondary to her bleeding which I anticipate will improve over time. There are pleural effusions with some evidence of decompensated CHF that may have occured in the setting of physiologic stress from her severe anemia. Only diurese as needed for shortness of breath and oxygen desaturation. Continue telemetry? Yes
[2018-06-28 22:55] VITALS: BP 120/76
[2018-06-29 07:00] VITALS: BP 142/78
[2018-06-29 08:07] LABS: ABSOLUTE BASOPHIL COUNT 0 /CUMM (0.0-0.2); ABSOLUTE EOSINOPHIL COUNT 0 /CUMM (0.0-0.7); ABSOLUTE GRANULOCYTE CT 12.8 /CUMM (1.4-6.5); ABSOLUTE LYMPH COUNT 1.3 /CUMM (1.2-3.4); ABSOLUTE MONOCYTE COUNT 0.6 /CUMM (0.10-0.60); BASOPHIL % 0 % (0.0-2.0); EOSINOPHIL % 0.1 % (0-5); GRANULOCYTE % 87.1 % (42.2-75.2); HEMATOCRIT 33.8 % (37-47); MEAN CORPUSCULAR HGB 28.2 PG (27.0-31.0); MEAN CORPUSCULAR HGB CONC 32.7 G/DL (33.0-37.0); MEAN CORPUSCULAR VOLUME 86.1 FL (81.0-99.0); MEAN PLATELET VOLUME 8.7 FL (7.4-10.4); PLATELET COUNT 160 /CUMM (130-400); RBC DISTRIBUTION WIDTH 18.7 % (11.5-14.5); RED BLOOD CELL CT 3.93 /CUMM (4.20-5.40); WHITE BLOOD CELL COUNT 14.7 /CUMM (4.8-10.8)
--- NOTE | 2018-06-29 10:10 | PN- Housestaff ---
Subjective Follow-up For: Hemmorhagic shock likely 2/2 acute blood loss, Afib s/p pacemaker Tele-Events Since Last Visit: NSR 91 - ST 109 Subjective: Pt was somnolent/lethargic when seen. Pt is nonverbal. Family at beside. Per nursing pt has barely been eating. Had to be given D5NS for hypoglycemia. Family considering hospice care for later today. Review of Systems Constitutional: Reports: see HPI. Objective Last 24 Hrs of Vital Signs/I&O Vital Signs Date Time Temp Pulse Resp B/P B/P Pulse O2 O2 Flow FiO2 Mean Ox Delivery Rate 06/29 1600 Nasal 2.0L Cannula 06/29 1438 97.5 90 20 110/82 94 Nasal 2.0L Cannula 06/29 1125 92 120/70 Physical Exam General Appearance: Lethargic/Somnolent Skin Temp/Moisture Exam: Cool/Dry Sepsis Skin Exam (color): Cyanotic HEENT: Atraumatic, EOMI Neck: Supple Cardiovascular: Normal S1, Normal S2 Lungs: Normal Air Movement Abdomen: Normal Bowel Sounds, Soft, No Tenderness Extremities: Weak Pulses LE Current Medications: Current Medications Sig/Osmany Start time Last Medication Dose Route Stop Time Status Admin Acetaminophen 650 MG Q4P PRN 06/29 1915 DCD PO Acetaminophen 650 MG Q4P PRN 06/29 1915 DCD OH Acetaminophen 650 MG Q6P PRN 06/25 2115 DC PO Artificial Tears 2 GTT Q2P PRN 06/29 1915 DCD OU Bisacodyl 10 MG DAILY NEEDED PRN 06/29 1915 DCD OH Ceftriaxone Sodium 1,000 MG 2100 06/28 2100 DCD 06/28 IV 2206 Cyanocobalamin 1,000 MCG DAILY 06/26 900 DCD 06/27 PO 1440 Folic Acid 1 MG DAILY 06/26 900 DCD 06/27 PO 1440 Glycerin 2 SPRAY Q4P PRN 06/29 1915 DCD PO Glycerin/Mineral Oil 1 ABBY Q8P PRN 06/29 1915 DCD TOP Glycopyrrolate 400 MCG Q4P PRN 06/29 1915 DCD SC Lorazepam 0.5 MG Q4 06/29 2200 DCD PO 07/06 215 Metoprolol Succinate 200 MG DAILY 06/26 900 DCD 06/28 PO 1004 Mirtazapine 15 MG AT BEDTIME 06/28 2100 DCD 06/28 PO 2206 Morphine Sulfate 2 MG Q4 06/29 220 DCD IV Pantoprazole Sodium 40 MG BID 06/25 2209 DCD 06/29 IV 1114 Assessment/Plan Assessment: Assessment/Plan: 88 YO F with PMH of hypertension, hyperlipidemia, diabetes, atrial fibrilliation s/p pacemaker, and PA was brought to the ED from [facility] for evaluation of BRBPR. AC has been on hold as risks of bleeding outweigh benefits as per cardio. Pt on 2L O2, Saurating at 94% Pt most likely going to hospice care today. Problem List: 1. [id number] kidney injury Pain Ratin Pain Location: NA Pain Goal: Remain pain free Pain Plan: Pain pathway Tomorrow's Labs & Rationales: None
[2018-06-29 11:25] VITALS: BP 120/70
--- NOTE | 2018-06-29 13:02 | PN- Att Addend ---
Attending Addendum Attending Brief Note Patient seen and examined, she is lethargic. Hardly able to open her eyes. Extremities are cold and cyanotic. Patient has anasarca. Very poor oral intake. Patient not getting any IV fluids. This morning required dextrose for hypoglycemia. Vital Signs Date Time Temp Pulse Resp B/P B/P Pulse O2 O2 Flow FiO2 Mean Ox Delivery Rate 06/29 1125 92 120/70 06/29 0700 97.5 98 18 142/78 94 06/28 2255 97.4 98 20 120/76 96 Nasal Cannula 06/28 1600 Nasal 2.0L Cannula 06/28 1404 98.3 99 22 126/80 91 Nasal Cannula on exam; lethargic cv; s1,s2, rrr resp; overall decreased bs. abd; soft, nt, bs+ ext; + edema skin: cold and cyanotic extremities. Laboratory Tests 06/29 0555 Chemistry Sodium (137 - 145 mmol/L) 142 Potassium (3.5 - 5.1 mmol/L) 4.0 Chloride (98 - 107 mmol/L) 113 H Carbon Dioxide (22 - 30 mmol/L) 20 L Anion Gap (5 - 16) 9 BUN (7 - 17 mg/dL) 47 H Creatinine (0.5 - 1.0 mg/dL) 2.1 H Estimated GFR (>60 ml/min) 22 L BUN/Creatinine Ratio (7 - 25 %) 22.4 Glucose (65 - 99 mg/dL) 129 H Hematology CBC w Diff MAN DIFF ORDERED WBC (4.8 - 10.8 /CUMM) 14.7 H RBC (4.20 - 5.40 /CUMM) 3.93 L Hgb (12.0 - 16.0 G/DL) 11.1 L Hct (37 - 47 %) 33.8 L MCV (81.0 - 99.0 FL) 86.1 MCH (27.0 - 31.0 PG) 28.2 MCHC (33.0 - 37.0 G/DL) 32.7 L RDW (11.5 - 14.5 %) 18.7 H Plt Count (130 - 400 /CUMM) 160 MPV (7.4 - 10.4 FL) 8.7 Gran % (42.2 - 75.2 %) 87.1 H Lymphocytes % (20.5 - 51.1 %) 8.9 L Monocytes % (1.7 - 9.3 %) 3.9 Eosinophils % (0 - 5 %) 0.1 Basophils % (0.0 - 2.0 %) 0 Absolute Granulocytes (1.4 - 6.5 /CUMM) 12.8 H Absolute Lymphocytes (1.2 - 3.4 /CUMM) 1.3 Absolute Monocytes (0.10 - 0.60 /CUMM) 0.6 Absolute Eosinophils (0.0 - 0.7 /CUMM) 0 Absolute Basophils (0.0 - 0.2 /CUMM) 0 Platelet Estimate (ADEQUATE) VERIFIED BY SMEAR Polychromasia 1+ Poikilocytosis 1+ Anisocytosis 1+ Ovalocytes 1+ Aiden Cells 1+ A/P; 88 y/o F with pmh sig for A. fib on Coumadin prior to admission, hypertension, diabetes, hyperlipidemia admitted with hemorrhagic/hypovolemic shock secondary to acute blood loss anemia from GI bleed. Patient also had sepsis because of a UTI. She had a central line placed, she had multiple units of blood, IV fluids and FFP and had an endoscopy which showed multiple duodenal ulcers with duodenitis and thickened gastric folds. In addition she has been treated with antibiotics for sepsis of urological origin. Identical correlation has been on hold. This has been discussed with hospice patient care secretary. Risks of anticoagulant and outweighs the benefits. Patient has been declining and not improving. She remains lethargic, aortic extremities, poor p.o. intake. Her daughter came in today and I had a lengthy discussion with patient's daughter. She wants to talk to hospice for possibly converting mom to hospice and make her comfortable. Continue current management and will consult hospice.
--- NOTE | 2018-06-29 13:51 | PN- Cardiology ---
Subjective Subjective: The patient continues to be minimally communicative. Creatinine is improving. No chest pain. No obvious complaints. Sinus rhythm on telemetry Objective Vital Signs and I&Os Vital Signs Date Time Temp Pulse Resp B/P B/P Pulse O2 O2 Flow FiO2 Mean Ox Delivery Rate 06/29 1125 92 120/70 06/29 0700 97.5 98 18 142/78 94 06/28 2255 97.4 98 20 120/76 96 Nasal Cannula 06/28 1600 Nasal 2.0L Cannula 06/28 1404 98.3 99 22 126/80 91 Nasal Cannula Intake & Output 06/29 1600 06/29 0806/29 0000 06/28 1600 06/28 0806/28 0000 Intake Total 50 200 345 170 700 Output Total 150 150 300 325 350 Balance -150 50 50 45 -155 350 Intake, IV 50 225 170 500 Intake, Oral 200 120 0 200 Number 1 1 Bowel Movements Output, Urine 150 150 300 325 350 Patient 163 lb 162 lb 162 lb Weight Weight Bed scale Bed scale Measurement Method Physical Exam: Gen: NAD HEENT: normal Lungs: Decreased breath sounds at the bases, normal resp. effort Heart: RRR, S1, S2, no murmurs Abdomen: Soft, nontender, no masses Extremities: 2+ edema Neuro: Alert and oriented x 3, cranial nerves intact Current Medications: Current Medications Sig/Osmany Start time Last Medication Dose Route Stop Time Status Admin Acetaminophen 650 MG Q6P PRN 06/25 2115 AC PO Ceftriaxone Sodium 1,000 MG 2100 06/28 2100 AC 06/28 IV 2206 Cyanocobalamin 1,000 MCG DAILY 06/26 900 AC 06/27 PO 1440 Dextrose 25 GM ONCE ONE 06/29 715 DC 06/29 IV 06/29 0716 0615 Dextrose/Water 50 ML .Q1M 06/29 615 DC IV 06/29 0616 Folic Acid 1 MG DAILY 06/26 900 AC 06/27 PO 1440 Furosemide 20 MG DAILY 06/29 900 CAN PO Metoprolol Succinate 200 MG DAILY 06/26 900 AC 06/28 PO 1004 Mirtazapine 15 MG AT BEDTIME 06/28 2100 AC 06/28 PO 2206 Pantoprazole Sodium 40 MG BID 06/25 2209 AC 06/29 IV 1114 Patient Medication 1 ED ONE ONE 06/28 1515 DC 06/29 Teaching ED 06/28 1516 1232 Results Last 48 Hrs of Labs/Mics: Laboratory Tests 06/29/18 0555: Anion Gap 9, Estimated GFR 22 L, BUN/Creatinine Ratio 22.4, Glucose 129 H, CBC w Diff MAN DIFF ORDERED, RBC 3.93 L, MCV 86.1, MCH 28.2, MCHC 32.7 L, RDW 18.7 H, MPV 8.7, Gran % 87.1 H, Lymphocytes % 8.9 L, Monocytes % 3.9, Eosinophils % 0.1, Basophils % 0, Absolute Granulocytes 12.8 H, Absolute Lymphocytes 1.3, Absolute Monocytes 0.6, Absolute Eosinophils 0, Absolute Basophils 0, Platelet Estimate VERIFIED BY SMEAR, Polychromasia 1+, Poikilocytosis 1+, Anisocytosis 1+ , Ovalocytes 1+, Aiden Cells 1+ 06/28/18 0555: Anion Gap 8, Estimated GFR 25 L, Glucose 113 H, Calcium 8.0 L, Phosphorus 4.0 , Magnesium 1.8, Total Bilirubin 0.4, AST 23, ALT 29, Albumin 2.3 L, PT 12.1, INR 1.11, CBC w Diff MAN DIFF ORDERED, RBC 3.78 L, MCV 85.4, MCH 27.9, MCHC 32.7 L, RDW 18.1 H, MPV 8.9, Gran % 91.3 H, Lymphocytes % 5.4 L, Monocytes % 3.2, Eosinophils % 0.1, Basophils % 0, Absolute Granulocytes 13.4 H, Segmented Neutrophils 90 H, Band Neutrophils 1, Absolute Lymphocytes 0.8 L, Lymphocytes 7 L, Monocytes 2, Absolute Monocytes 0.5, Absolute Eosinophils 0, Absolute Basophils 0, Nucleated RBCs 2 H, Platelet Estimate ADEQUATE, Polychromasia , Poikilocytosis 1+, Anisocytosis 1+, Ovalocytes 1+ Assessment/Plan Assessment/Plan Assessment: 1. Paroxysmal atrial fibrillation, currently in sinus rhythm 2. Recent GI bleed 3. Sepsis, resolved 4. Acute on chronic kidney injury Plan: * Would continue to hold Lasix today. Consider restarting p.o. Lasix tomorrow if renal function continues to improve * Off anticoagulation secondary to recent GI bleed Continue telemetry? Yes
[2018-06-29 14:38] VITALS: BP 110/82
== END 2018-06-29 20:26 | disposition hospice, home (50) | DRG 871 ==
LOC: ERH 15:11 → ERHI 20:09 → CRI 20:09 → ENRESERV 20:22 → ENTRNSPT 21:18 → EDTRNSPTSTS 21:28 → EDTRNSPT 21:28 → CMPTRNSPT 21:44 → CRI 21:51 → ENTRNSPT 06-27 17:39 → 1NO 06-27 18:03 → CMPTRNSPT 06-27 18:11 → 1NO 06-27 21:18 → ENTRNSPT 06-29 19:11 → EDTRNSPT 06-29 19:23 → EDTRNSPTSTS 06-29 19:23 → 2NA 06-29 19:37 → CMPTRNSPT 06-29 19:45 → 2NA 06-29 20:26
PROVIDERS: Internal Medicine; Internal Medicine Interventional Cardiology; Physician Assistant; Student in an Organized Health Care Education/Training Program
PROC: 30233N1 Transfusion of Nonautologous Red Blood Cells into Peripheral Vein, Percutaneous Approach (ICD-10-PCS; principal; 2018-06-25)
PROC: 0DB68ZX Excision of Stomach, Via Natural or Artificial Opening Endoscopic, Diagnostic (ICD-10-PCS; 2018-06-26)
PROC: 02HV33Z Insertion of Infusion Device into Superior Vena Cava, Percutaneous Approach (ICD-10-PCS; 2018-06-27)
DX: A41.9 Sepsis, unspecified organism (principal); R65.21 Severe sepsis with septic shock; R57.8 Other shock; K29.01 Acute gastritis with bleeding; R57.1 Hypovolemic shock; N39.0 Urinary tract infection, site not specified; N17.9 Acute kidney failure, unspecified; D62 Acute posthemorrhagic anemia; E87.2 Acidosis; I24.8 Other forms of acute ischemic heart disease; K26.3 Acute duodenal ulcer without hemorrhage or perforation; N18.4 Chronic kidney disease, stage 4 (severe); J90 Pleural effusion, not elsewhere classified; F05 Delirium due to known physiological condition; R89.2 Abnormal level of other drugs, medicaments and biological substances in specimens from other organs, systems and tissues; T45.515A Adverse effect of anticoagulants, initial encounter; E87.5 Hyperkalemia; Z79.01 Long term (current) use of anticoagulants; K29.80 Duodenitis without bleeding; E78.5 Hyperlipidemia, unspecified; Z95.0 Presence of cardiac pacemaker; I25.2 Old myocardial infarction; R79.1 Abnormal coagulation profile; Z88.1 Allergy status to other antibiotic agents; Z88.0 Allergy status to penicillin; I25.10 Atherosclerotic heart disease of native coronary artery without angina pectoris; Z66 Do not resuscitate; I12.9 Hypertensive chronic kidney disease with stage 1 through stage 4 chronic kidney disease, or unspecified chronic kidney disease; I48.0 Paroxysmal atrial fibrillation; B96.20 Unspecified Escherichia coli [E. coli] as the cause of diseases classified elsewhere; B96.4 Proteus (mirabilis) (morganii) as the cause of diseases classified elsewhere
CPT/HCPCS: 1NP; CCU; 36415; 36592; 71045; 71046; 74176; 81001; 82436; 86920; 87040; 87086; 87449; 87450; 93005; 93010; 96374; 96375; 99291; C1769; J0610; J0696; J1815; J1940; J3490; J7040; J7042; J7060; J7508; P9016

== ENCOUNTER 2018-06-29 20:26 | Inpatient (IN) | payer OTHER ==
[~2018-06-29 20:26] MED LIST: ACIDOPHILUS1 EACH PO; BACTRIM DS TAB1 EACH PO; CALCIUM 500 +1 EAC3 PO; CARDIZEM CD120 M2 PO; COUMADIN1 M1 PO; CRESTOR5 M1 PO; FOLIC ACID1 M1 PO; LASIX20 M1 PO; MIRALAX17 G1 PO; SERTRALINE HCL25 MG PO; SODIUM CHLORI1000 MG PO; TOPROL XL200 M1 PO; TRAVATAN Z5 ML OD; VITAMIN B-121000 MC3 PO
--- NOTE | 2018-06-30 12:42 | PN- Att Addend ---
Attending Addendum Attending Brief Note Patient seen and examined, remains lethargic. Patient on hospice care. Family at bedside. Vital Signs Date Time Temp Pulse Resp B/P B/P Pulse O2 O2 Flow FiO2 Mean Ox Delivery Rate 06/30 604 96.5 48 16 06/30 0000 Nasal 2.0L Cannula 06/29 2122 Nasal 2.0L Cannula on exam; lethargic but looks comfortable. cv; s1, s2, rrr resp; decreased overall. abd; soft. ext: 2+ edema cold extremities. A/P; 88 y/o F with pmh sig for A. fib on Coumadin prior to admission, hypertension, diabetes, hyperlipidemia admitted with hemorrhagic/hypovolemic shock secondary to acute blood loss anemia from GI bleed. Patient also had sepsis because of a UTI. She had a central line placed, she had multiple units of blood, IV fluids and FFP and had an endoscopy which showed multiple duodenal ulcers with duodenitis and thickened gastric folds. In addition she has been treated with antibiotics for sepsis of urological origin. Patient was evaluated by hospice yesterday and was considered appropriate for inpatient hospice. Continue morphine and glycopyrrolate. Continue comfort and oxygen. Continue hospice care.
[2018-07-01 06:47] VITALS: BP 88/52
--- NOTE | 2018-07-01 13:36 | PN- Hospice ---
Subjective Subjective: Daughter at bedside. Pt. appears comfortable on scheduled morphine and ativan. She is minimally responsive. Review of Systems Constitutional: Reports: see HPI. Objective Last 24 Hrs of Vital Signs/I&O Vital Signs Date Time Temp Pulse Resp B/P B/P Pulse O2 O2 Flow FiO2 Mean Ox Delivery Rate 07/01 800 Nasal 2.0L Cannula 07/01 0647 98.5 85 9 88/52 92 / 0000 Nasal 2.0L Cannula Intake & Output 07/01 1600 07/01 0807/01 0000 Intake Total Output Total 50 Balance -50 Output, Urine 50 Physical Exam General Appearance: no apparent distress, sedated Head: atraumatic Ears, Nose, Throat: oral mucosa dry Respiratory: no respiratory distress, quiet respiration, decreased breath sounds , O2 2lnp Cardiovascular: regular rate/rhythm Extremities: anasarca, cyanosis of several fingers bilat. and bilat. feet Other Physical Findings: castillo with vega urine Current Medications: Current Medications Sig/Osmany Start time Last Medication Dose Route Stop Time Status Admin Acetaminophen 650 MG Q4P PRN 07/01 1345 UNVr DE Acetaminophen 650 MG Q4P PRN 06/29 204 DC PO Artificial Tears 2 GTT Q2P PRN 06/29 204 AC OU Bisacodyl 10 MG DAILY NEEDED PRN 06/29 204 AC DE Glycerin 2 SPRAY Q4P PRN 06/29 204 AC 06/30 PO 1550 Glycerin/Mineral Oil 1 ABBY Q8P PRN 06/29 204 AC TOP Glycopyrrolate 200 MCG 4 TIMES/DAY PRN 06/30 0100 AC 06/30 IV 1550 Lorazepam 0.5 MG Q3P PRN 07/01 1345 UNVr IV Lorazepam 0.5 MG Q6 06/29 2045 AC 07/01 IV 1204 Morphine Sulfate 0 .STK-MED ONE 07/01 1305 DC .ROUTE Morphine Sulfate 2 MG Q2P PRN 07/01 1300 AC IV Morphine Sulfate 2 MG Q4 06/29 2200 AC 07/01 IV 1310 Patient Medication 1 ED ONE ONE 07/01 1230 DC Teaching ED 07/01 1231 Assessment/Plan Hospice Assessment/Recommendations: 88 y/o F with pmh sig for A. fib on Coumadin prior to admission, hypertension, diabetes, hyperlipidemia admitted with gastroduodenitis with acute GIB (from supratherapeutic INR) resulting in hemorrhagic shock secondary to acute blood loss anemia as well as acute on chronic kidney disease. She was placed on hospice service over weekend as daughter states pt would not want continued aggressive measures, and she has been comfortable on scheduled morphine and ativan. Will continued scheduled meds and add morphine 2 mg IV every 2 hours as needed and ativan 0.5 mg IV every 3 hours as needed. Discussed with hospice/home health aide and daughter. Problem List: 1. Gastroduodenitis with bleeding 2. [id number] kidney injury 3. Hospice care
--- NOTE | 2018-07-03 13:11 | Discharge Summary ---
Visit Information Visit Dates Admission Date: 06/29/18 Discharge Date: 07/02/18 Hospital Course Course Attending Physician: David Garcia MD Primary Care Physician: Maureen Amador MD Hospital Course: 88 y/o F with pmh sig for A. fib on Coumadin prior to admission, hypertension, diabetes, hyperlipidemia admitted with gastroduodenitis with acute GIB (from supratherapeutic INR) resulting in hemorrhagic shock secondary to acute blood loss anemia as well as acute on chronic kidney disease. She was placed on hospice service over weekend as daughter states pt would not want continued aggressive measures, and she had been comfortable on scheduled morphine and ativan until she peacefully on 07/02/18. Allergies: Coded Allergies: Penicillins (UNKNOWN 06/25/18) erythromycin base (UNKNOWN 06/25/18) fluoxetine (From PROZAC) (UNKNOWN 06/25/18) Disposition Summary Disposition Principal Diagnosis: Gastrointestinal bleeding, acute Gastroduodenitis Acute kidney injury on chronic kidney disease Additional Diagnosis: Supratherapeutic INR on coumadin therapy Hemmorhagic shock Acute blood loss anemia Atrial Fibrillation Dementia Discharge Disposition: Discharge Instructions General Discharge Information Code Status: Hospice Patient's Diet: N/A Patient's Activity: N/A Follow-Up Instructions/Appts: N/A Copies To: Maureen Amador MD
== END 2018-07-02 05:14 | disposition expired | DRG 871 ==
LOC: 2NA 20:26 → ENTRNSPT 07-02 10:50 → EDTRNSPTSTS 07-02 11:03 → EDTRNSPT 07-02 11:03 → CMPTRNSPT 07-02 11:17
DX: A41.9 Sepsis, unspecified organism (principal); K29.91 Gastroduodenitis, unspecified, with bleeding; N17.9 Acute kidney failure, unspecified; N39.0 Urinary tract infection, site not specified; D62 Acute posthemorrhagic anemia; R57.8 Other shock; Z51.5 Encounter for palliative care; R57.1 Hypovolemic shock; E11.22 Type 2 diabetes mellitus with diabetic chronic kidney disease; K26.9 Duodenal ulcer, unspecified as acute or chronic, without hemorrhage or perforation; I48.2 Chronic atrial fibrillation; Z79.01 Long term (current) use of anticoagulants; I12.9 Hypertensive chronic kidney disease with stage 1 through stage 4 chronic kidney disease, or unspecified chronic kidney disease; E78.5 Hyperlipidemia, unspecified; N18.9 Chronic kidney disease, unspecified
CPT/HCPCS: 2NASP